=== PATIENT | female | born 1935 | race Caucasian/White ===

== ENCOUNTER → 2017-08-20 | Outpatient (CLI) | payer MEDICARE, MEDICAID ==
[~2017-08-20] MED LIST: ACET-1966 PO; ALBU8.5H IH; AMMO57LO TP; AMOX-559 PO; ASCO500C9 PO; AZIT-1 PO; BISA-236 RC; BISA-71 PO; CALC-18 PO; CALC-852 PO; CALC-864 PO; CHOL200025 PO; CIPDEXPT RIGHT EAR; CLON0.5T66 PO; CRAN250C2 PO; CYAN1TAB68 PO; DICL100G39 TOP; DOCU-202 PO; DOCU100C49 PO; DOXY-179 PO; DOXY50SY2 PO; DULO30CA6 PO; FERR-103 PO; FERR325T24 PO; FLU IM; FLU45SYR17 IM; FLU45SYR25 IM ONLY; FLUC100T35 PO; FLUT1DIS28 IH; FURO-45 PO; FURO-47 PO; FURO20TA19 PO; GUAI1200 PO; HYDR-4308 PO; IPRA3AMP21 IH; LACT1CAP64 PO; LEVO250T55 PO; LIDO5CRE13 TP; LIDO700A29 TD; LISI2.5T60 PO; LOSA25TA47 PO; LUTE20CA11 PO; MAGN400T36 PO; MAGN500C10 PO; MELA1TAB23 PO; METH4TAB66 PO; MONT10TA PO; MORP-20 PO; MUPI15CR10 TP; OMEP-114 PO; OMEP-125 PO; OXYGENHOME INH; PARO-242 PO; PNEU0.5D3 IM; POTA-23 PO; POTA10CA40 PO; SPIR25TA76 PO; VIT-9 PO; VITA1CAP46 PO; [UNRECOGNIZED DRUG - CODE] IV; [UNRECOGNIZED DRUG - CODE] IV; [UNRECOGNIZED DRUG - CODE] IV; [UNRECOGNIZED DRUG - OTHER] IV
== END ==
LOC: AUD 11:00
PROVIDERS: ATTEND Nurse Practitioner Family
DX: Z46.1 Encounter for fitting and adjustment of hearing aid (principal); H91.90 Unspecified hearing loss, unspecified ear
CPT/HCPCS: 92591; V5259

== ENCOUNTER → 2017-09-14 | Outpatient (CLI) | payer MEDICARE, MEDICAID ==
[~2017-09-14] MED LIST changes: +BARIUM SULFATE 176 GM BTL PO ONE; +BARIUM SULFATE 340 GM POWD ONE
--- NOTE | 2017-09-14 16:49 | RADIOLOGY IMAGING REPORT ---
FACILITY: [facility] [place] PATIENT NAME: Alanna Felipe : 1935 MR: [id number] V: [id number] EXAM DATE: ORDERING PHYSICIAN: EDGARD NIELSEN TECHNOLOGIST: Location: [facility] [place] Patient: Alanna Felipe : 1935 Visit/Account:[id number] Date of Sevice: 09/14/2017 Exam type: ESOPHAGRAM History: 81-year-old female with hoarseness and dysphagia Comparison: CT chest 01/08/2017. Findings: Fluoroscopy was used for the purposes of an esophagram. 1.4 minutes of fluoroscopy time was used for total DAP of 1836.12 microGy/m2. The AP view demonstrates elevation right hemidiaphragm which is unchanged prior examination. Patient has a right-sided central venous catheter with the tip in the SVC. Extensive postoperative changes are noted in the cervical spine. The patient was given several sips of thin barium and some crystals. There was aspiration and theref ore a single contrast esophagram was not performed. Motility of the upper esophagus was relatively n ormal. 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 There is also dysmotility and tertiary contractions involving the distal 3rd of the es ophagus. Patient also appears to have a small hiatal hernia. IMPRESSION: 1. Small to moderate amount of aspiration of barium. 2. 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 Patient was unable to pass an 11 mm barium tablet at this location . 3. Small hiatal hernia. 4. Esophageal dysmotility and tertiary contractions involving the distal 3rd of the esophagus. Report Dictated By: Walter Mishra MD at 09/14/2017 4:25 PM Report E-Signed By: Walter Mishra MD at 09/14/2017 4:45 PM WSN:[id number]
== END ==
LOC: RAD 00:54
PROVIDERS: ATTEND Otolaryngology
DX: K44.9 Diaphragmatic hernia without obstruction or gangrene (principal)
CPT/HCPCS: 74220

== ENCOUNTER 2017-09-15 07:59 | Outpatient (RCR) | payer MEDICARE, MEDICAID ==
[2017-06-23 08:28] VITALS: BP 131/72
[2017-06-23] MEDS: ACETAMINOPHEN 325 MG TAB PO PRN (08:40)
[2017-06-23] MEDS: HEPARIN FLSH (PORT) 500 UN/5ML IVP PRN (08:40)
[2017-06-23] MEDS: methylPREDNIS SUCC 125 MG/2ML IVP PRN (08:40)
[2017-06-23] MEDS: LIDOCAINE/SOD BICARB 8.4% SYR ID PRN (08:40)
[2017-06-23 08:41] LABS: PLATELET COUNT, AUTOMATED 140 K/uL (150-450)
[2017-07-14] MEDS: methylPREDNIS SUCC 125 MG/2ML IVP PRN (08:34)
[2017-07-14] MEDS: ACETAMINOPHEN 325 MG TAB PO PRN (08:34)
[2017-07-14 08:49] LABS: PLATELET COUNT, AUTOMATED 168 K/uL (150-450)
[2017-07-14 08:55] VITALS: BP 144/66
[2017-07-14] MEDS: NS(*) 0.9% 100 ML BAG 100 ML IVPB PRN (09:08)
[2017-07-23 12:54] VITALS: BP 156/62
--- NOTE | 2017-07-27 16:49 | ONCOLOGY FOLLOW UP NOTE ---
EVENT DATE: July 23, 2017 DIAGNOSES 1. Iron deficiency anemia. 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 4. Hypertension. 5. History of congestive heart failure. 6. History of peptic ulcer disease. CHIEF COMPLAINT The patient is here for followup of her iron deficiency anemia and hypogammaglobulinemia. HEMATOLOGY HISTORY The patient is a 81-year-old female who is followed by Dr. Kwok. The patient was known to have hypogammaglobulinemia diagnosed at age 31, currently on IVIG every three weeks. The patient was found to have chronic anemia. Her chem panel on June 19, 2015 showed creatinine of 1.1, BUN of 44. Her CBC showed white count 7.3, hemoglobin 8.6, hematocrit 28.2, platelet count 207. Peripheral blood smear showed hypochromia and microcytosis. Soluble transferrin receptor assay was high at 9.4. Serum ferritin was low at 9. HISTORY OF PRESENT ILLNESS Patient is here today for the followup of her iron-deficiency anemia. She is complaining of occasional epistaxis. She has occasional dry cough and occasional shortness of breath. She has generalized joint pains. She has tinging and numbness in her fingers after her neck surgery which is consistent for the 40 years. She bruises easily. Other than that, her general condition is stable. She continue to have IVIG infusions every 3 weeks. CURRENT MEDICATIONS 1. Morphine sulfate 15 mg b.i.d. 2. Omeprazole 20 mg b.i.d. 3. Lasix 40 mg daily. 4. [place] 7.5/325 one tablet b.i.d. p.r.n. 5. Clonazepam 0.5 mg q.h.s. 6. Paxil 10 mg once daily. 7. Spironolactone 12.5 mg daily. 8. Potassium chloride 10 mEq daily. 9. Lisinopril 2.5 mg daily. 10. Vitamin B12/folic acid 1 tablet each daily. 11. Magnesium oxide 500 mg every other day. 12. Bisacodyl 5 mg 2 tablets daily every other day. 13. IVIG every 3 weeks. 14. Cranberry 250 mg daily. 15. Multivitamins. 16. Preservision 2 tablets 2 times daily. 17. Calcium carbonate q.6 hours. 18. Probiotic daily. 19. Heparin flushes for her port. ALLERGIES SULFA, LATEX, FISH. PAST MEDICAL HISTORY 1. Hypogammaglobulinemia. 2. Chronic anemia. 3. Hypertension. 4. History of repeated pneumonia. 5. COPD. 6. History of congestive heart failure. 7. History of hiatal hernia. 8. History of peptic ulcer disease. 9. History of osteomyelitis of the neck. 10. History of shingles. 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 PAST SURGICAL HISTORY 1. Tonsillectomy in 1943. 2. Cholecystectomy in 1963. 3. Splenectomy for ruptured spleen. 4. Total abdominal hysterectomy with salpingo-oophorectomy in 1979. 5. Fracture repair of right ankle. FAMILY HISTORY Negative for cancer or blood diseases. SOCIAL HISTORY The patient is a with 5 children. She was a housewife. Denies any abuse of tobacco, alcohol, or drugs. REVIEW OF SYSTEMS CONSTITUTIONAL: No appetite or weight change. No fever, chills or sweating. No recent infection. HEENT: Ears: No tinnitus or hearing problem. Nose: The patient has occasional epistaxis. Throat: No sore throat or mouth ulcers. Eyes: No diplopia or visual changes. RESPIRATORY: She has dry cough and occasional shortness of breath. CARDIOVASCULAR: No chest pain, orthopnea, or paroxysmal nocturnal dyspnea (PND) . No edema. No palpitations. GASTROINTESTINAL: No nausea or vomiting. No diarrhea or constipation. No change in bowel movements. No heartburn or swallowing difficulties. No abdominal pain. No jaundice. No hematemesis, melena or rectal bleeding. GENITOURINARY: No hematuria or dysuria. MUSCULOSKELETAL: She has pain all over her joints. NEUROLOGICAL: She has tingling and numbness in her fingers after her neck surgery. HEMATOLOGIC/LYMPHATIC: She bruises easily. SKIN: No skin rash or lumps. PSYCHIATRIC: No anxiety or depression. PHYSICAL EXAMINATION GENERAL: Looks stable. Well-developed, well-nourished, and in no acute distress. VITAL SIGNS: Blood pressure 156/62, pulse 73 per minute, respirations 16 per minute, temperature 97.1, pulse ox 94% on 3L oxygen. HEENT: Head: Atraumatic. No sinus tenderness to palpation. Eyes: No icterus or conjunctivitis. Mouth and throat: No oral thrush or mucositis. NECK: Supple. No cervical or supraclavicular lymphadenopathy. LUNGS: Clear to auscultation and percussion bilaterally. HEART: Regular rate and rhythm. No gallops, murmurs, clicks or rubs. ABDOMEN: Soft and lax. No tenderness. No hepatosplenomegaly. No masses. EXTREMITIES: No cyanosis, clubbing or edema. LYMPHATICS: No peripheral lymphadenopathy. NEUROLOGICAL: Conscious, alert and oriented times three. No focal motor or sensory deficits. PSYCHIATRIC: Mood and affect appear normal. SKIN: No skin rash, bruise or purpuric eruption. DIAGNOSTIC DATA CBC shows a white count of 6.6, hemoglobin 11.9, hematocrit 34.3, platelet 140, 000. Serum iron 53. TIBC 303. Iron saturation 17.5%. Ferritin 37 which is down from 62. ASSESSMENT 1. Iron deficiency anemia. Her ferritin initially was 9, and soluble transferrin receptor assay was high at 9.4. Patient was treated with iron supplementation with Injectafer 750 mg weekly for two weeks. Her iron studies normalized. Her current serum ferritin is 62, which is down from 75. Her hemoglobin is normal and good at 13 g/dL. I am planning to continue followup. I will see her next time in four months with CBC, iron studies with ferritin. I will consider Injectafer in the future if she develops iron deficiency again. She is maintained currently on one pill of ferrous sulfate daily and I advised her to continue the same. 2. Hypogammaglobulinemia on IVIG every three weeks. 3. Hypertension, on treatment. 4. History of congestive heart failure. 5. History of peptic ulcer disease. PLAN 1. Continue followup. 2. Increase the iron supplementation from 1 pill a day to 1 pill twice daily. 3. Patient to return in 3 months with CBC and iron studies with ferritin. 4. Patient to contact us for any new concern or complaints. DANIELLA
[2017-08-04 08:33] VITALS: BP 133/73
[2017-08-04] MEDS: ACETAMINOPHEN 325 MG TAB PO PRN (08:38)
[2017-08-04] MEDS: HEPARIN FLSH (PORT) 500 UN/5ML IVP PRN (08:39)
[2017-08-04] MEDS: methylPREDNIS SUCC 125 MG/2ML IVP PRN (08:39)
[2017-08-04] MEDS: NS(*) 0.9% 100 ML BAG 100 ML IVPB PRN (08:40)
[2017-08-04] MEDS: LIDOCAINE/SOD BICARB 8.4% SYR ID PRN (08:40)
[2017-08-04 11:00] VITALS: BP 131/65
[2017-08-25 08:15] VITALS: BP 146/62
[2017-08-25] MEDS: methylPREDNIS SUCC 125 MG/2ML IVP PRN (09:00)
[2017-08-25] MEDS: LIDOCAINE/SOD BICARB 8.4% SYR ID PRN (09:00)
[2017-08-25] MEDS: ACETAMINOPHEN 325 MG TAB PO PRN (09:00)
[2017-08-25] MEDS: NS(*) 0.9% 100 ML BAG 100 ML IVPB PRN (11:05)
[2017-08-25] MEDS: HEPARIN FLSH (PORT) 500 UN/5ML IVP PRN (11:51)
[~2017-09-15] VITALS: Ht 156.2 cm; Wt 71.8 kg
[~2017-09-15 07:59] MED LIST changes: +ALTEPLASE RECOMB 2 MG VIAL IVP PRN; -BARIUM SULFATE 176 GM BTL PO ONE; -BARIUM SULFATE 340 GM POWD ONE; +DEXTROSE 5%(*) 100 ML BAG 100 ML IVPB PRN; +IMMU GLOB(IGG) 10GR/100ML VIAL 40 GR in EMPTY EVACUATED CONT 0 ML IV ONE; +NS(*) 0.9% 500 ML BAG 500 ML IV PRN; +WATER STERILE 10 ML VIAL IVP PRN; +diphenhydrAMINE 25 MG CAP PO PRN
[2017-09-15] MEDS: ACETAMINOPHEN 325 MG TAB PO PRN (08:18)
[2017-09-15] MEDS: LIDOCAINE/SOD BICARB 8.4% SYR ID PRN (08:18)
[2017-09-15] MEDS: methylPREDNIS SUCC 125 MG/2ML IVP PRN (08:19)
[2017-09-15 08:33] VITALS: BP 155/69
[2017-09-15] MEDS: NS(*) 0.9% 100 ML BAG 100 ML IVPB PRN (08:52)
[2017-09-15] MEDS ORDERED: IMMU GLOB(IGG) 10GR/100ML VIAL 40 GR in EMPTY EVACUATED CONT 0 ML IV ONE (09:00)
[2017-09-15] MEDS: HEPARIN FLSH (PORT) 500 UN/5ML IVP PRN (11:40)
[2017-09-15] MEDS ORDERED: MORP-20 PO (17:03)
[2017-09-21] MEDS ORDERED: DULO30CA6 PO (14:52)
== END 2017-09-20 ==
LOC: SPU 07:59
PROVIDERS: ATTEND Internal Medicine Hematology
DX: D64.9 Anemia, unspecified (principal); M86.68 Other chronic osteomyelitis, other site; D80.1 Nonfamilial hypogammaglobulinemia
CPT/HCPCS: 82728; 83540; 83550; 85025; 96365; 96366; 96375; A9270; G0463; J1459; J1642; J2930; J7050; Q0163; 99212

== ENCOUNTER → 2017-10-06 | Outpatient (CLI) | payer MEDICARE, MEDICAID ==
[~2017-10-06] MED LIST changes: -ALTEPLASE RECOMB 2 MG VIAL IVP PRN; -DEXTROSE 5%(*) 100 ML BAG 100 ML IVPB PRN; -IMMU GLOB(IGG) 10GR/100ML VIAL 40 GR in EMPTY EVACUATED CONT 0 ML IV ONE; -NS(*) 0.9% 500 ML BAG 500 ML IV PRN; -WATER STERILE 10 ML VIAL IVP PRN; -diphenhydrAMINE 25 MG CAP PO PRN
== END ==
LOC: SPU 07:32
PROVIDERS: ATTEND Family Medicine
DX: I10 Essential (primary) hypertension (principal); I50.9 Heart failure, unspecified

== ENCOUNTER 2017-10-11 14:42 | Outpatient (RCR) | payer MEDICARE, MEDICAID ==
[~2017-10-11 14:42] MED LIST changes: +ACET-1966 IV; +DIPH-740 IV
--- NOTE | 2017-10-11 18:32 | SWALLOW EVALUATION ---
SPEECH THERAPY ASSESSMENT Physician: Reji Peoples MD Clinician: Haydee Strong MS, [facility]-[employer] Type of Assessment: Dysphagia Evaluation Patient: Alanna Felipe : 1935, 82yrs Evaluation Date: 10-11-17 BACKGROUND The patient is an 82year old female with witnessed aspiration of thin liquids as seen on imaging performed as seen on a recent esophagram. She reports no s/ s of dysphagia. She has a history of esophageal dysphagia including hiatal hernial and esophageal stricture. PREVIOUS LEVEL OF FUNCTION: Primary Medical Diagnosis: Dysphagia Prior Level of Function: Self limits to soft foods d/t no lower dentures. She does where upper dentures. Medical Complications/Past Medical History: See chart for details Pain Scale (0-10): 0 LOC / Participation: alert cooperative Follows instructions: yes Orientation: oriented to person, place, time, situation Functional Communication Deficits impact swallow function/safety, or response to therapy: Yes VOICE Vocal Deficits: No Changes to vocal quality: reports increase in vocal hoarseness over last 6m to 1yr DYSPHAGIA Dysphagia Risk Evaluation Protocol DREP: Water Swallow Test: Fail, Puree Swallow Test: Pass, Solids Swallow Test: Pass Xerostomia: Yes Supplemental Oxygen Use: No Oxygen Saturation: Remains Stable with liquid and food trials. Respiratory Rate: Remains stable throughout food/liquid trials. Oral Structure and Function: Within functional limits for speech and swallow. Largely edentulous bottom ridge. Bottom dentures do not fit well and she does not where them. She does where upper dentures. Pain with Swallow: Denies Respiratory/Swallow Coordination: Typically patterned (ie. exhale/swallow/ exhale) Oral Stage Oral Stage Dysphagia: Mild. Self Feeds: Yes Compensatory Maneuvers Used: Self limits to soft food d/t dentition Pharyngeal Stage Pharyngeal Stage Dysphagia: Yes. Aspiration of think liquid as witnessed on recent esophagram. Pt denies s/s of pharyngeal stage dysphagia Esophageal Stage Esophageal Stage Dysphagia Indicated: Yes. Patient has GERD and is currently taking medications. ST ASSESSMENT SUMMARY DYSPHAGIA Pt failed swallow assessment for thin liquids as aspiration was witnessed on recent esophagram. She reports there was no reflexive coughing or other symptoms at the time aspiration and reports she has no other s/s of dysphagia. RECOMMENDATIONS 1. Modified Barium Swallow Study PLAN OF CARE Short Term Goals Additional goals will be added to POC as indicated by results of MBS 1. The patient will participate in an MBS to further assess swallow structure and function. 2. The patient will receive written and verbal education regarding safe swallow strategies. Assisted Goals: The patient will demonstrate decreased risk for aspiration Patient Goals: reduced s/s of dysphagia Rehabilitation Prognosis: Good. Pt is motivated. Thank you for this referral. Please call [phone] Haydee Strong M.S., [employer]ING M[employer]INE [employer] Physician Signature Date MTDD
[2017-10-17] MEDS ORDERED: FURO-47 PO (19:40)
--- NOTE | 2017-10-26 13:38 | SLP MODIFIED BARIUM SWALLOW ---
Speech Language Pathology Modified Barium Swallow Evaluation Report Date of Evaluation: 10-26-17 Patient Name: Alanna Felipe Patient : 1935 Physician: Dr. Reji Peoples MD Clinician: Haydee Strong M.S., [facility]-[employer]IC ANALYST BACKGROUND The patient is an 82 yr old female referred for an MBS to assess swallow structure and function as indicated by witnessed aspiration during an esophagram in September of 2017. Pt medical hx is significant for COPD and GERD for which she reports she is currently taking medication. She has a history of esophageal dysphagia including hiatal hernia and esophageal stricture. She reports no s/s of dysphagia. MODIFIED BARIUM SWALLOW In conjunction with radiology, lateral view with trials of the following consistencies: thin barium liquid (noncarbonated), barium marked pureed, mechanical soft foods, and a 1cm barium pill. ORAL STAGE Thin Liquids: no evidence of dysphagia . WNL Pureed Foods: no evidence of dysphagia . WNL Mechanical Soft Foods: no evidence of dysphagia . WNL Regular Foods: no evidence of dysphagia . WNL. PHARYNGEAL STAGE Thin Liquid: trace aspiration below the vocal folds on 1/8 trials. Immediate, reflexive cough was successful at clearing material from airway. Pureed Food: no evidence of dysphagia WNL. Mechanical Soft Foods: no evidence of dysphagia WNL. Regular Food Consistency: Pt declined regular food consistency trials due to pt is largely edentulous bottom ridge. Bottom dentures do not fit well and she does not wear them. She does where upper dentures. Penetration/Aspiration Scale*: Thin liquid: Score of 6: Material enters the airway, passes below the vocal folds, and is ejected out of the airway. Trace aspiration occurred on 1/8 trials of thin liquids. [place] thick liquids: Score of 1= Contrast does not enter airway Puree: Score of 1= Contrast does not enter airway Soft solids: Score of 1= Contrast does not enter airway *(Cammiek et al. 1996) BARIUM PILL: 1cm barium pill taken with thin liquids. No oral or pharyngeal, dysphagia witnessed. SUMMARY Aspiration Risk: Low. 1.Dysphagia Severity Rating Scale (Gramigna, 2006; Gumaro et. al., 1990): 0 Normal swallow mechanism RECOMMENDATIONS 1. No further Speech Therapy indicated at this time. Verbal and written education provided to patient and her daughter in law at time of MBS. Pt encouraged to contact ST with any questions and report any changes in swallow to her physician. 2.No modification in consistency of diet is indicated. 3. Follow general safe swallow precautions. Verbal and written education provided Thank you for this referral. Please call [phone] to contact the [employer] ANALYST. Haydee Strong M.S., [facility] ANALYST Physician Signature Date MTDD
[2017-10-26] MEDS ORDERED: LOSA50TA72 PO (17:16)
[2017-10-26] MEDS ORDERED: ALBU8.5H IH (17:24)
[2017-10-26] MEDS ORDERED: ACET500T68 PO (18:53)
== END 2017-10-11 18:00 | disposition home or self-care (01) ==
LOC: ST 14:42
PROVIDERS: ATTEND Otolaryngology
DX: T17.908A Unspecified foreign body in respiratory tract, part unspecified causing other injury, initial encounter (principal)

== ENCOUNTER 2017-10-21 10:15 | Emergency (ER) | payer MEDICARE, MEDICAID ==
--- NOTE | 2017-10-21 10:17 | ER Report ---
History and Physical Time Seen By MD: 10:17 HPI/ROS CHIEF COMPLAINT: Elevated blood pressure HISTORY OF PRESENT ILLNESS: Patient is an 82-year-old female who presents to the emergency department for evaluation of elevated blood pressure home she recorded blood pressure of 200/108. Patient further states over the past few days she's been having increasing shortness of breath but denies actual chest pain or pressure. She also reports a cough but no fevers or chills. The cough is nonproductive. She denies any nausea vomiting or abdominal pain. Patient is taking all her medications as directed. Patient has not had a heart attack in the past. REVIEW OF SYSTEMS: Constitutional: No fever, no chills. Eyes: No discharge. ENT: No sore throat. Cardiovascular: No chest pain, no palpitations. Respiratory: Dry cough, shortness of breath Gastrointestinal: No abdominal pain, no vomiting. Genitourinary: No hematuria. Musculoskeletal: No back pain. Skin: No rashes. Neurological: No headache. Allergies: Coded Allergies: Sulfa (Sulfonamide Antibiotics) (Unverified Allergy, Unknown, nausea, vomiting, 07/25/16) latex (Unverified Allergy, Unknown, 07/25/16) Uncoded Allergies: FISH (Allergy, Unknown, 03/22/14) Home Meds Active Scripts Furosemide (FUROSEMIDE) 40 Mg Tablet, 1 TAB PO DAILY, #180 TAB 4 Refills Prov:KHOA MELENDEZ MD 10/17/17 Morphine Sulfate 15 Mg Er Tab (MORPHINE SULFATE 15 MG ER TAB) 15 Mg Tablet.er, 1 TAB PO BID, #60 TAB Prov:KHOA MELENDEZ MD 10/11/17 Losartan Potassium (COZAAR) 25 Mg Tablet, 25 MG PO QDAY, #90 TAB 4 Refills Prov:KHOA MELENDEZ MD 10/04/17 Duloxetine HCl (Duloxetine HCl) 30 Mg Capsule.dr, 1 CAP PO DAILY, #90 CAP 1 Refill Prov:KHOA MELENDEZ MD 09/21/17 Diclofenac Sodium 1% Gel (VOLTAREN 1% GEL) 100 Gm Gel..gram., 2 GM TOP QID for 90 Days, #3 TUBE 3 Refills Prov:KHOA MELENDEZ MD 08/20/17 Potassium Chloride (POTASSIUM CHLORIDE) 10 Meq Capsule.er, 1 MEQ PO BID, #180 TAB 4 Refills Prov:RADHA GARCÍA MD 05/06/17 Omeprazole (OMEPRAZOLE) 20 Mg Capsule.dr, 1 CAP PO BID, #180 CAP 4 Refills Prov:RADHA GARCÍA MD 05/06/17 Doxycycline Hyclate (DOXYCYCLINE HYCLATE) 100 Mg Tablet, 1 TAB PO QDAY, #90 TAB 2 Refills Prov:RADHA GARCÍA MD 05/06/17 Reported Medications Acetaminophen (TYLENOL) Unknown Strength Tablet, IV Q3WK, TAB 10/08/17 Diphenhydramine Hcl (BENADRYL) Unknown Strength Capsule, IV Q3WK, CAPSULE 10/08/17 Ferrous Sulfate (IRON) 325 Mg Tablet, 1 CAP PO DAILY, #60 TAB 2 Refills 07/16/17 Oxygen (OXYGEN) Inha, 2-4 L INH CONT, L 07/30/15 Calcium Carb & Cit/Vitamin D3 (CITRACAL + D ER TABLET) 1 Each Tablet.er, 1 EACH PO BID 07/30/15 Vitamin B Complex (VITAMIN B COMPLEX) 1 Each Capsule, 1 EACH PO DAILY, CAPSULE 07/30/15 Docusate Sodium (STOOL SOFTENER) 100 Mg Capsule, 2 CAP PO QODAY, CAPSULE 07/30/15 Immune Globulin,Gamma(Igg) 5 Gm Vial (PRIVIGEN 5 GM VIAL) 50 Ml Vial, 42 G IV Q3WK, VIAL no greater than 120 cc/hr 08/22/14 Vit A/Vit C/Vit E/Zinc/Copper (PRESERVISION AREDS TABLET) 1 Each Tablet, 2 TAB PO BID 03/22/14 Lutein (LUTEIN) 20 Mg Capsule, 1 CAP PO QDAY, CAPSULE 03/22/14 Lactobacillus Acidophilus (ACIDOPHILUS) 1 Each Capsule, 1 EACH PO QDAY, CAPSULE 03/22/14 Heparin Sodium,Porcine/Pf (HEPARIN LOCK FLUSH 10 UNITS/ML) 10 Unit/1 Ml Vial, 2 UNIT IV Q3WK, VIAL 03/22/14 Past Medical/Surgical History Past medical history significant for congestive heart failure, history of mitral regurgitation, history of hypertension, history of COPD, history of peptic ulcer disease, anemia, past surgical history for cholecystectomy, splenectomy, hysterectomy and nephrectomy. Also history of fracture repair of right ankle. Hx Smoking: No Smoking Status: Never Smoker Exposure to Second Hand Smoke?: No Hx Substance Use Disorder: No Hx Alcohol Use: No Constitutional Vital Sign - Last 24 Hours 10/21/17 10/21/17 10/21/17 10/21/17 10:15 10:23 10:26 10:31 Temp 98.1 Pulse ??? 73 Resp 18 B/P (MAP) 173/87 (115) 173/87 164/66 (98) Pulse Ox 99 O2 Delivery Room Air 10/21/17 10/21/17 10/21/17 10/21/17 10:40 10:45 11:00 11:07 Pulse 72 77 Resp 12 21 B/P (MAP) 150/68 (95) Pulse Ox 98 98 O2 Flow Rate 3.0 10/21/17 10/21/17 10/21/17 10/21/17 11:15 11:30 11:35 11:50 Pulse 74 76 75 73 Resp 16 19 9 12 Pulse Ox 99 97 99 98 10/21/17 10/21/17 10/21/17 10/21/17 12:05 12:20 12:35 12:50 Pulse 72 72 69 ??? Resp 11 14 8 Pulse Ox 99 99 98 Physical Exam General/Constitutional: Patient is awake, alert, nontoxic and in no acute respiratory distress. Head: Normocephalic and atraumatic. Eyes: Conjunctival clear, Pupils are equal and reactive to light. Extraocular muscles are intact and symmetrical. Sclera are clear and anicteric. Ears:External canals are clear. Tympanic membranes are clear with normal landmarks and light reflex. Nares: No rhinorrhea or bleeding. Turbinates are pink and moist. Oropharyngeal: Mucous membranes are moist. Neck: Supple, no adenopathy. Cardiovascular: Heart is regular rate and rhythm without audible murmurs, rubs or gallops. Pulmonary: Lungs are clear to auscultation bilaterally. There are no wheezes, rales, or rhonchi. Chest rise is symmetrical Abdomen: Soft, nontender, no guarding or peritoneal signs. Extremities: No gross deformities, No peripheral cyanosis. Able to move all 4 extremities. Neuro: Alert and oriented X3, . Skin: No rashes, skin is warm dry and well perfused. Medical Decision Making Data Points Result Diagram: 10/21/17 1057 10/21/17 1057 Laboratory Hematology Test 10/21/17 10:57 3/22/18 11:38 Red Blood Count 3.82 M/uL (4.17-5.56) Mean Corpuscular Volume 94.5 fL (80.0-96.0) Mean Corpuscular Hemoglobin 32.4 pg (26.0-33.0) Mean Corpuscular Hemoglobin Concent 34.3 g/dL (32.0-36.0) Red Cell Distribution Width 14.6 % (11.5-14.5) Mean Platelet Volume 10.7 fL (7.2-11.1) Neutrophils (%) (Auto) 38.0 % (39.4-72.5) Lymphocytes (%) (Auto) 44.4 % (17.6-49.6) Monocytes (%) (Auto) 12.0 % (4.1-12.4) Eosinophils (%) (Auto) 3.7 % (0.4-6.7) Basophils (%) (Auto) 1.9 % (0.3-1.4) Nucleated RBC Relative Count (auto) 0.1 /100WBC Neutrophils # (Auto) 3.3 K/uL (2.0-7.4) Lymphocytes # (Auto) 3.9 K/uL (1.3-3.6) Monocytes # (Auto) 1.1 K/uL (0.3-1.0) Eosinophils # (Auto) 0.3 K/uL (0.0-0.5) Basophils # (Auto) 0.2 K/uL (0.0-0.1) Nucleated RBC Absolute Count (auto) 0.01 K/uL Sodium Level 137 mmol/L (137-145) Potassium Level 4.2 mmol/L (3.5-5.0) Chloride Level 106 mmol/L (98-107) Carbon Dioxide Level 23 mmol/L (22-31) Blood Urea Nitrogen 26 mg/dl (7-18) Creatinine 0.90 mg/dl (0.52-1.04) Glomerular Filtration Rate Calc > 60.0 Random Glucose 97 mg/dl (75-110) Calcium Level 8.5 mg/dl (8.4-10.2) Total Bilirubin 0.4 mg/dl (0.2-1.3) Aspartate Amino Transf (AST/SGOT) 26 U/L (0-35) Alanine Aminotransferase (ALT/SGPT) 25 U/L (0-56) Alkaline Phosphatase 127 U/L (0-126) Troponin I 0.023 ng/ml B-Type Natriuretic Peptide 347 pg/ml (0-100) Total Protein 6.0 gm/dl (6.3-8.2) Albumin 3.1 g/dl (3.5-5.0) Urine Color Yellow Urine Clarity Clear Urine pH 5.0 pH (4.8-9.5) Urine Specific [place] 1.016 Urine Protein Negative mg/dL (NEGATIVE) Urine Glucose (UA) Negative mg/dL (NEGATIVE) Urine Ketones Negative mg/dL (NEGATIVE) Urine Blood Negative (NEGATIVE) Urine Nitrite Negative (NEGATIVE) Urine Bilirubin Negative (NEGATIVE) Urine Urobilinogen Negative mg/dL (0.2-1.9) Urine Leukocyte Esterase Negative (NEGATIVE) Urine RBC 1 /HPF (0-2/HPF) Urine WBC 1 /HPF (0-5/HPF) Urine Squamous Epithelial Cells None /LPF (NONE-FEW) Urine Transitional Epithelial Cells Few /LPF (NONE-FEW) Urine Bacteria Negative /HPF (NONE-FEW) Urine Mucus None /HPF (NONE-FEW) Chemistry Test 10/21/17 10:57 10/21/17 11:38 White Blood Count 8.7 k/uL (4.5-11.0) Red Blood Count 3.82 M/uL (4.17-5.56) Hemoglobin 12.4 g/dL (12.0-16.0) Hematocrit 36.1 % (34.0-47.0) Mean Corpuscular Volume 94.5 fL (80.0-96.0) Mean Corpuscular Hemoglobin 32.4 pg (26.0-33.0) Mean Corpuscular Hemoglobin Concent 34.3 g/dL (32.0-36.0) Red Cell Distribution Width 14.6 % (11.5-14.5) Platelet Count 169 K/uL (150-450) Mean Platelet Volume 10.7 fL (7.2-11.1) Neutrophils (%) (Auto) 38.0 % (39.4-72.5) Lymphocytes (%) (Auto) 44.4 % (17.6-49.6) Monocytes (%) (Auto) 12.0 % (4.1-12.4) Eosinophils (%) (Auto) 3.7 % (0.4-6.7) Basophils (%) (Auto) 1.9 % (0.3-1.4) Nucleated RBC Relative Count (auto) 0.1 /100WBC Neutrophils # (Auto) 3.3 K/uL (2.0-7.4) Lymphocytes # (Auto) 3.9 K/uL (1.3-3.6) Monocytes # (Auto) 1.1 K/uL (0.3-1.0) Eosinophils # (Auto) 0.3 K/uL (0.0-0.5) Basophils # (Auto) 0.2 K/uL (0.0-0.1) Nucleated RBC Absolute Count (auto) 0.01 K/uL Glomerular Filtration Rate Calc > 60.0 Calcium Level 8.5 mg/dl (8.4-10.2) Total Bilirubin 0.4 mg/dl (0.2-1.3) Aspartate Amino Transf (AST/SGOT) 26 U/L (0-35) Alanine Aminotransferase (ALT/SGPT) 25 U/L (0-56) Alkaline Phosphatase 127 U/L (0-126) Troponin I 0.023 ng/ml B-Type Natriuretic Peptide 347 pg/ml (0-100) Total Protein 6.0 gm/dl (6.3-8.2) Albumin 3.1 g/dl (3.5-5.0) Urine Color Yellow Urine Clarity Clear Urine pH 5.0 pH (4.8-9.5) Urine Specific [place] 1.016 Urine Protein Negative mg/dL (NEGATIVE) Urine Glucose (UA) Negative mg/dL (NEGATIVE) Urine Ketones Negative mg/dL (NEGATIVE) Urine Blood Negative (NEGATIVE) Urine Nitrite Negative (NEGATIVE) Urine Bilirubin Negative (NEGATIVE) Urine Urobilinogen Negative mg/dL (0.2-1.9) Urine Leukocyte Esterase Negative (NEGATIVE) Urine RBC 1 /HPF (0-2/HPF) Urine WBC 1 /HPF (0-5/HPF) Urine Squamous Epithelial Cells None /LPF (NONE-FEW) Urine Transitional Epithelial Cells Few /LPF (NONE-FEW) Urine Bacteria Negative /HPF (NONE-FEW) Urine Mucus None /HPF (NONE-FEW) Urinalysis Test 10/21/17 11:38 Urine Color Yellow Urine Clarity Clear Urine pH 5.0 pH (4.8-9.5) Urine Specific [place] 1.016 Urine Protein Negative mg/dL (NEGATIVE) Urine Glucose (UA) Negative mg/dL (NEGATIVE) Urine Ketones Negative mg/dL (NEGATIVE) Urine Blood Negative (NEGATIVE) Urine Nitrite Negative (NEGATIVE) Urine Bilirubin Negative (NEGATIVE) Urine Urobilinogen Negative mg/dL (0.2-1.9) Urine Leukocyte Esterase Negative (NEGATIVE) Urine RBC 1 /HPF (0-2/HPF) Urine WBC 1 /HPF (0-5/HPF) Urine Squamous Epithelial Cells None /LPF (NONE-FEW) Urine Transitional Epithelial Cells Few /LPF (NONE-FEW) Urine Bacteria Negative /HPF (NONE-FEW) Urine Mucus None /HPF (NONE-FEW) EKG/Imaging EKG Interpretation EKG shows normal sinus rhythm with possible left atrial enlargement otherwise EKG appears normal. Monitor Interpretation: Normal Sinus Rhythm ED Course/Re-evaluation Clinical Indication for ER IV: IV Access ED Course 10/21/2017 11:17:29 am Plan at this time will be to obtain an EKG chest x-ray we will do a cardiac workup including a troponin and a BNP. Patient not having any body aches or headaches. No other symptoms to suggest influenza. Current blood pressure is 150 /68 without treatment Decision to Disposition Date: Oct 21, 2017 Decision to Disposition Time: 12:29 Depart Departure Latest Vital Signs Vital Signs Date Time Temp Pulse Resp B/P (MAP) Pulse Ox O2 Delivery O2 Flow Rate FiO2 10/21/17 12:50 ??? 10/21/17 12:35 8 98 10/21/17 11:07 3.0 10/21/17 10:40 150/68 (95) 10/21/17 10:26 98.1 Room Air Impression: Primary Impression: Hypertension Condition: Improved Disposition: HOME OR SELF-CARE Referrals: KHOA MELENDEZ MD (PCP) In 1 to 2 weeks for recheck of blood pressure. Patient Instructions: Chronic Hypertension (ED) Additional Instructions: Continue all your outpatient medications as prescribed Problem Qualifiers Primary Impression: Hypertension Hypertension type: essential hypertension Qualified Codes: I10 - Essential ( primary) hypertension RENÉ PIERRE MD Oct 21, 2017 10:17
[2017-10-21 10:40] VITALS: BP 150/68
[2017-10-21 11:23] LABS: PLATELET COUNT, AUTOMATED 169 K/uL (150-450)
--- NOTE | 2017-10-21 11:55 | EKG ---
[facility] PATIENT NAME: SARAHY MORTON : [id number] MR: [id number] V: [id number] EXAM DATE: ORDERING PHYSICIAN: RENÉ PIERRE TECHNOLOGIST: Fracisco Jane Reason : Blood Pressure : / mmHG Vent. Rate : 072 BPM Atrial Rate : 072 BPM P-R Int : 124 ms QRS Dur : 088 ms QT Int : 426 ms P-R-T Axes : 040 002 018 degrees QTc Int : 466 ms Normal sinus rhythm Possible Left atrial enlargement Borderline ECG When compared with ECG of 06-NOV-2016 10:12, No significant change was found Confirmed by ZOIE LYLES ([id number]) on 10/21/2017 4:42:00 PM Referred By: Confirmed By:ZOIE LYLES
--- NOTE | 2017-10-21 12:10 | RADIOLOGY IMAGING REPORT ---
FACILITY: [facility] [place] PATIENT NAME: Alanna Felipe : 1935 MR: [id number] V: [id number] EXAM DATE: ORDERING PHYSICIAN: RENÉ PIERRE TECHNOLOGIST: Location: [facility] [place] Patient: Alanna Felipe : 1935 Visit/Account:[id number] Date of Sevice: 10/21/2017 CHEST PA AND LAT History: Chest Pain FINDINGS: Comparison studies: Comparison chest CT 01/08/2017 and chest x-ray 11/06/2016 Tubes and Lines: Implanted power port unchanged Lungs and pleura: There is chronically elevated right hemidiaphragm unchanged from previous study. Lungs are well-aerated without evidence of focal consolidation. No pleural effusions are seen. Mediastinum: normal. Cardiac silhouette: Cardiac silhouette appears enlarged but this is unchanged and is due in part to d isplacement from the elevated right hemidiaphragm. Osseous structures: Cervical spinal fusion hardware unchanged from prior exam Additional findings: Numerous surgical clips left upper quadrant of the abdomen unchanged IMPRESSION: No acute cardiopulmonary pathology identified. Report Dictated By: Rony Tillman MD at 10/21/2017 12:02 PM Report E-Signed By: Rony Tillman MD at 10/21/2017 12:05 PM WSN:[id number]
[2017-10-21] MEDS ORDERED: HEPARIN FLSH (PORT) 500 UN/5ML IVP ONE (12:35)
== END 2017-10-21 12:55 | disposition home or self-care (01) ==
LOC: ER 10:20
DX: I10 Essential (primary) hypertension (principal)
CPT/HCPCS: 71046; 81001; 83880; 84484; 85025; 93005; 99284; A4353; J1642; 82040; 82247; 82310; 82374; 82435; 82565; 82947; 84075; 84132; 84155; 84295; 84450; 84460; 84520

== ENCOUNTER → 2017-10-22 | Outpatient (CLI) | payer MEDICARE, MEDICAID ==
[~2017-10-22] MED LIST changes: +ACET500T68 PO; +BARIUM SULFATE 148 GM POWDER ONE; +BARIUM SULFATE 240 ML ORAL SUS (NECTAR) ONE; +LOSA50TA72 PO
--- NOTE | 2017-10-26 12:09 | RADIOLOGY IMAGING REPORT ---
FACILITY: [facility] PATIENT NAME: Alanna Felipe : 1935 MR: [id number] V: [id number] EXAM DATE: ORDERING PHYSICIAN: EDGARD NIELSEN TECHNOLOGIST: Location: [facility] Patient: Alanna Felipe : 1935 Visit/Account:[id number] Date of Sevice: 10/26/2017 ESOPH VIDEO SWALLOWING HISTORY: dysphagia Modified barium swallow performed with the speech pathologist and radiologist both in attendance. Pa tient was administered thin, puree solid, soft solid and mixed barium preparations. Patient was also administered a barium pill. Study demonstrating normal oropharyngeal swallowing mechanism and motility. On the initial swallow t he patient was noted to have penetration and aspiration. After this initial episode, no additional p enetration or aspiration events were noted. Barium pill passed easily. IMPRESSION: 1. Modified barium swallow as described. Please refer to the speech pathologist report for complete elucidation. Fluoroscopic time of 1.5 minutes. DAP [id number] Report Dictated By: Broderick Aguero MD at 10/26/2017 12:02 PM Report E-Signed By: Broderick Aguero MD at 10/26/2017 12:05 PM WSN:[id number]
== END ==
LOC: RAD 14:56
PROVIDERS: ATTEND Otolaryngology
DX: R13.14 Dysphagia, pharyngoesophageal phase (principal); K21.9 Gastro-esophageal reflux disease without esophagitis

== ENCOUNTER 2017-11-03 00:30 | Day surgery (SDC) | payer MEDICARE, MEDICAID ==
[~2017-11-03] VITALS: Ht 157.5 cm; Wt 67.6 kg
[2017-11-03] VITALS (9 sets, daily range): BP systolic 139–186; BP diastolic 58–90
[~2017-11-03 00:30] MED LIST changes: -BARIUM SULFATE 148 GM POWDER ONE; -BARIUM SULFATE 240 ML ORAL SUS (NECTAR) ONE
[2017-11-03] MEDS ORDERED: NORMOSOL R SOLN(*) 1000 ML BAG 1,000 ML IV PRN (08:15)
[2017-11-03] MEDS ORDERED: LIDOCAINE/SOD BICARB 8.4% SYR ID ONE (08:15)
[2017-11-03] MEDS ORDERED: LIDOCAINE MPF 1% 5 ML VIAL ONE (08:51)
[2017-11-03] MEDS ORDERED: PROPOFOL EMUL(*) 10MG/ML 20 ML 20 ML ONE (08:51)
--- NOTE | 2017-11-03 09:50 | Short(Outpt) Discharge Summary ---
Discharge Summary Reason for Hosp/Final Diag: (1) Dysphagia Status: Chronic Hospital Course & Plan: EGD with esophageal dilation completed without problems. (2) GERD (gastroesophageal reflux disease) Status: Chronic (3) History of peptic ulcer disease Status: Chronic Departure Discharge to: Home, Self Care Discharge Instructions Home Meds Active Scripts Albuterol Sulfate 90 Mcg/Act (PROAIR HFA 90 MCG/ACT) 8.5 Gm Hfa.aer.ad, 1-2 PUFF IH 3-4XD for 30 Days, #1 INHALER Prov:KHOA MELENDEZ MD 10/26/17 Losartan Potassium (LOSARTAN POTASSIUM) 50 Mg Tablet, 50 MG PO QDAY for 90 Days , #90 TAB Prov:KHOA MELENDEZ MD 10/26/17 Furosemide (FUROSEMIDE) 40 Mg Tablet, 1 TAB PO DAILY, #180 TAB 4 Refills Prov:KHOA MELENDEZ MD 10/17/17 Morphine Sulfate 15 Mg Er Tab (MORPHINE SULFATE 15 MG ER TAB) 15 Mg Tablet.er, 1 TAB PO BID, #60 TAB Prov:KHOA MELENDEZ MD 10/11/17 Duloxetine HCl (Duloxetine HCl) 30 Mg Capsule.dr, 1 CAP PO DAILY, #90 CAP 1 Refill Prov:KHOA MELENDEZ MD 09/21/17 Diclofenac Sodium 1% Gel (VOLTAREN 1% GEL) 100 Gm Gel..gram., 2 GM TOP QID for 90 Days, #3 TUBE 3 Refills Prov:KHOA MELENDEZ MD 08/20/17 Potassium Chloride (POTASSIUM CHLORIDE) 10 Meq Capsule.er, 1 MEQ PO BID, #180 TAB 4 Refills Prov:RADHA GARCÍA MD 05/06/17 Omeprazole (OMEPRAZOLE) 20 Mg Capsule.dr, 1 CAP PO BID, #180 CAP 4 Refills Prov:RADHA GARCÍA MD 05/06/17 Doxycycline Hyclate (DOXYCYCLINE HYCLATE) 100 Mg Tablet, 1 TAB PO QDAY, #90 TAB 2 Refills Prov:RADHA GARCÍA MD 05/06/17 Reported Medications Acetaminophen (TYLENOL EXTRA STRENGTH) 500 Mg Tablet, 2 TAB PO TID, CAP 10/26/17 Acetaminophen (TYLENOL) Unknown Strength Tablet, IV Q3WK, TAB 10/08/17 Diphenhydramine Hcl (BENADRYL) Unknown Strength Capsule, IV Q3WK, CAPSULE 10/08/17 Ferrous Sulfate (IRON) 325 Mg Tablet, 1 CAP PO DAILY, #60 TAB 2 Refills 07/16/17 Oxygen (OXYGEN) Inha, 2-4 L INH CONT, L 07/30/15 Calcium Carb & Cit/Vitamin D3 (CITRACAL + D ER TABLET) 1 Each Tablet.er, 1 EACH PO BID 07/30/15 Vitamin B Complex (VITAMIN B COMPLEX) 1 Each Capsule, 1 EACH PO DAILY, CAPSULE 07/30/15 Docusate Sodium (STOOL SOFTENER) 100 Mg Capsule, 2 CAP PO QODAY, CAPSULE 07/30/15 Immune Globulin,Gamma(Igg) 5 Gm Vial (PRIVIGEN 5 GM VIAL) 50 Ml Vial, 42 G IV Q3WK, VIAL no greater than 120 cc/hr 08/22/14 Vit A/Vit C/Vit E/Zinc/Copper (PRESERVISION AREDS TABLET) 1 Each Tablet, 2 TAB PO BID 03/22/14 Lutein (LUTEIN) 20 Mg Capsule, 1 CAP PO QDAY, CAPSULE 03/22/14 Lactobacillus Acidophilus (ACIDOPHILUS) 1 Each Capsule, 1 EACH PO QDAY, CAPSULE 03/22/14 Heparin Sodium,Porcine/Pf (HEPARIN LOCK FLUSH 10 UNITS/ML) 10 Unit/1 Ml Vial, 2 UNIT IV Q3WK, VIAL 03/22/14 Follow up Referrals: General Surgery - 11/30/17 @ Surgery, General with Zoie Roa Md You have a follow up appointment scheduled with Dr. Roa on 11/30/17, at 9:30am. Diet: Regular Activity: As Tolerated Special Instructions: Your upper endoscopy was completed without any problems and I dilated your esophagus. I didn't find any evidence of cancer or precancerous lesions. You had mild inflammation in your lower stomach. I will see you back in my office on 11/30/17 and we'll see how your symptoms are at that time. Problem Qualifiers (1) Dysphagia: Dysphagia type: esophageal phase Qualified Codes: R13.10 - Dysphagia, unspecified ZOIE ROA MD Nov 03, 2017 09:50
[2017-11-08] MEDS ORDERED: ALB18R INH (09:50)
[2017-11-08] MEDS ORDERED: MORP-20 PO (13:31)
== END 2017-11-03 11:25 | disposition home or self-care (01) ==
LOC: OR 00:30
PROVIDERS: ATTEND Surgery
DX: R13.10 Dysphagia, unspecified (principal); K21.9 Gastro-esophageal reflux disease without esophagitis; I11.0 Hypertensive heart disease with heart failure; I34.0 Nonrheumatic mitral (valve) insufficiency; Z99.81 Dependence on supplemental oxygen; I50.9 Heart failure, unspecified; J44.9 Chronic obstructive pulmonary disease, unspecified; D64.9 Anemia, unspecified; K27.9 Peptic ulcer, site unspecified, unspecified as acute or chronic, without hemorrhage or perforation; Z90.49 Acquired absence of other specified parts of digestive tract; Z90.710 Acquired absence of both cervix and uterus; Z98.1 Arthrodesis status
CPT/HCPCS: 43248; C1769; J2001; J2704

== ENCOUNTER → 2017-12-02 | Outpatient (CLI) | payer MEDICARE, MEDICAID ==
[~2017-12-02] MED LIST changes: +ALB18R INH; +FLUT16SP19 NS
== END ==
LOC: RESP 02:18
PROVIDERS: ATTEND Family Medicine
DX: J98.4 Other disorders of lung (principal)
CPT/HCPCS: 94060; 94726; 94729

== ENCOUNTER → 2017-12-08 | Outpatient (CLI) | payer MEDICARE, MEDICAID | LOC: SPU 08:44 | PROVIDERS: ATTEND Internal Medicine Cardiovascular Disease | DX: I34.0 Nonrheumatic mitral (valve) insufficiency (principal); I10 Essential (primary) hypertension | CPT/HCPCS: 36591; 82040; 82247; 82310; 82374; 82435; 82565; 82947; 83880; 84075; 84132; 84155; 84295; 84450; 84460; 84520 ==

== ENCOUNTER → 2017-12-23 | Outpatient (CLI) | payer MEDICARE, MEDICAID ==
[~2017-12-23] MED LIST changes: +BENZ100C4 PO
--- NOTE | 2017-12-23 17:46 | RADIOLOGY IMAGING REPORT ---
FACILITY: [facility] - [place] PATIENT NAME: Alanna Felipe : 1935 MR: [id number] V: [id number] EXAM DATE: ORDERING PHYSICIAN: KHOA MELENDEZ TECHNOLOGIST: Location: [facility] [place] Patient: Alanna Felipe : 1935 Visit/Account:[id number] Date of Sevice: 12/23/2017 Chest 2 views: HISTORY: Cough, immunodef. COMPARISON: 10/21/2017 FINDINGS: Frontal and lateral chest: Heart is enlarged, similar to previous. There is elevation the r ight hemidiaphragm which is unchanged. There is no infiltrate or pleural effusion. No pneumothorax. P ulmonary vasculature is normal. Chest port remains in place, position unchanged. Surgical clips are present in the upper abdomen. Postsurgical changes present in the cervical spine. IMPRESSION: Stable chronic changes. There is no evidence of acute cardiopulmonary abnormality. Report Dictated By: Tiny Kent MD at 12/23/2017 5:39 PM Report E-Signed By: Tiny Kent MD at 12/23/2017 5:42 PM WSN:[id number]
== END ==
LOC: RAD 16:38
PROVIDERS: ATTEND Family Medicine
DX: I51.7 Cardiomegaly (principal)
CPT/HCPCS: 71046

== ENCOUNTER 2017-12-29 08:08 | Outpatient (RCR) | payer MEDICARE, MEDICAID ==
[2017-10-06] MEDS: HEPARIN FLSH (PORT) 500 UN/5ML IVP PRN (08:11)
[2017-10-06] MEDS: LIDOCAINE/SOD BICARB 8.4% SYR ID PRN (08:11)
[2017-10-06] MEDS: NS(*) 0.9% 100 ML BAG 100 ML IVPB PRN (08:12)
[2017-10-06 08:35] LABS: PLATELET COUNT, AUTOMATED 169 K/uL (150-450)
[2017-10-06] MEDS: methylPREDNIS SUCC 125 MG/2ML IVP PRN (08:47)
[2017-10-06] MEDS: ACETAMINOPHEN 325 MG TAB PO PRN (08:47)
[2017-10-27] MEDS: ACETAMINOPHEN 325 MG TAB PO PRN (08:19)
[2017-10-27] MEDS: LIDOCAINE/SOD BICARB 8.4% SYR ID PRN (08:23)
[2017-10-27 08:37] VITALS: BP 143/69
[2017-10-27] MEDS: methylPREDNIS SUCC 125 MG/2ML IVP PRN (08:45)
[2017-10-27 08:47] LABS: PLATELET COUNT, AUTOMATED 160 K/uL (150-450)
[2017-10-27] MEDS: HEPARIN FLSH (PORT) 500 UN/5ML IVP PRN (11:53)
[2017-10-29 12:27] VITALS: BP 182/79
--- NOTE | 2017-10-30 15:23 | ONCOLOGY FOLLOW UP NOTE ---
EVENT DATE: October 29, 2017 DIAGNOSES 1. Iron deficiency anemia. 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 4. Hypertension. 5. History of congestive heart failure. 6. History of peptic ulcer disease. CHIEF COMPLAINT The patient is here today for followup of her iron deficiency anemia and hypogammaglobulinemia. HEMATOLOGY HISTORY The patient is a 82-year-old female who is followed by Dr. Kwok. The patient was known to have hypogammaglobulinemia diagnosed at age 31, currently on IVIG every three weeks. The patient was found to have chronic anemia. Her chem panel on June 19, 2015 showed creatinine of 1.1, BUN of 44. Her CBC showed white count 7.3, hemoglobin 8.6, hematocrit 28.2, platelet count 207. Peripheral blood smear showed hypochromia and microcytosis. Soluble transferrin receptor assay was high at 9.4. Serum ferritin was low at 9. HISTORY OF PRESENT ILLNESS Patient is here today for followup of her hypogammaglobulinemia and iron- deficiency anemia. She is complaining of cough with occasional phlegm. She is short of winded. She is on 3L of oxygen currently. She has back pain, pain in her ankles and hands. She has numbness in her fingers. CURRENT MEDICATIONS 1. Morphine sulfate 15 mg b.i.d. 2. Omeprazole 20 mg b.i.d. 3. Lasix 40 mg daily. 4. [place] 7.5/325 one tablet b.i.d. p.r.n. 5. Clonazepam 0.5 mg q.h.s. 6. Paxil 10 mg once daily. 7. Spironolactone 12.5 mg daily. 8. Potassium chloride 10 mEq daily. 9. Lisinopril 2.5 mg daily. 10. Vitamin B12/folic acid 1 tablet each daily. 11. Magnesium oxide 500 mg every other day. 12. Bisacodyl 5 mg 2 tablets daily every other day. 13. IVIG every 3 weeks. 14. Cranberry 250 mg daily. 15. Multivitamins. 16. Preservision 2 tablets 2 times daily. 17. Calcium carbonate q.6 hours. 18. Probiotic daily. 19. Heparin flushes for her port. ALLERGIES SULFA, LATEX, FISH. PAST MEDICAL HISTORY 1. Hypogammaglobulinemia. 2. Chronic anemia. 3. Hypertension. 4. History of repeated pneumonia. 5. COPD. 6. History of congestive heart failure. 7. History of hiatal hernia. 8. History of peptic ulcer disease. 9. History of osteomyelitis of the neck. 10. History of shingles. 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 PAST SURGICAL HISTORY 1. Tonsillectomy in 1943. 2. Cholecystectomy in 1963. 3. Splenectomy for ruptured spleen. 4. Total abdominal hysterectomy with salpingo-oophorectomy in 1979. 5. Fracture repair of right ankle. FAMILY HISTORY Negative for cancer or blood diseases. SOCIAL HISTORY The patient is a with 5 children. She was a housewife. Denies any abuse of tobacco, alcohol, or drugs. REVIEW OF SYSTEMS CONSTITUTIONAL: No appetite or weight change. No fever, chills or sweating. No recent infection. HEENT: Ears: No tinnitus or hearing problem. Nose: The patient has occasional epistaxis. Throat: No sore throat or mouth ulcers. Eyes: No diplopia or visual changes. RESPIRATORY: Patient has cough with occasional phlegm. She is short winded. CARDIOVASCULAR: No chest pain, orthopnea, or paroxysmal nocturnal dyspnea (PND) . No edema. No palpitations. GASTROINTESTINAL: No nausea or vomiting. No diarrhea or constipation. No change in bowel movements. No heartburn or swallowing difficulties. No abdominal pain. No jaundice. No hematemesis, melena or rectal bleeding. GENITOURINARY: No hematuria or dysuria. MUSCULOSKELETAL: She has pain in the back, ankles and hands. NEUROLOGICAL: She has numbness in her fingers. HEMATOLOGIC/LYMPHATIC: She bruises easily. SKIN: No skin rash or lumps. PSYCHIATRIC: No anxiety or depression. PHYSICAL EXAMINATION GENERAL: Looks stable. Well-developed, well-nourished, and in no acute distress. VITAL SIGNS: Blood pressure 182/79, pulse 82 per minute, respirations 16 per minute, temperature 97.3, pulse ox 92% on 3L oxygen. HEENT: Head: Atraumatic. No sinus tenderness to palpation. Eyes: No icterus or conjunctivitis. Mouth and throat: No oral thrush or mucositis. NECK: Supple. No cervical or supraclavicular lymphadenopathy. LUNGS: Clear to auscultation and percussion bilaterally. HEART: Regular rate and rhythm. No gallops, murmurs, clicks or rubs. ABDOMEN: Soft and lax. No tenderness. No hepatosplenomegaly. No masses. EXTREMITIES: No cyanosis, clubbing or edema. LYMPHATICS: No peripheral lymphadenopathy. NEUROLOGICAL: Conscious, alert and oriented times three. No focal motor or sensory deficits. PSYCHIATRIC: Mood and affect appear normal. SKIN: No skin rash, bruise or purpuric eruption. DIAGNOSTIC DATA CBC shows a white count of 5.5, hemoglobin 12.6, hematocrit 36.6, platelet 160, 000. Serum iron 61. TIBC 309. Iron saturation 19.7%. Ferritin 50 which is up from 37. ASSESSMENT 1. Iron deficiency anemia. Her ferritin initially was 9, and soluble transferrin receptor assay was high at 9.4. Patient was treated with iron supplementation with Injectafer 750 mg weekly for two weeks with normalization of her iron studies. Her current serum ferritin is 50, which is up from 37 after increasing her iron supplement from one pill to two pills a day. Her hemoglobin is stable at 12.6 g/dL. I am planning to continue followup. I will see her again in three months with CBC, iron studies with ferritin. 2. Hypogammaglobulinemia on IVIG every three weeks. 3. Hypertension, on treatment. 4. History of congestive heart failure. 5. History of peptic ulcer disease. PLAN 1. Continue followup. 2. Patient to return in 3 months with CBC and iron studies with ferritin. 3. Continue iron supplementation two pills a day. 4. Patient to contact us for any new concerns or complaints. DANIELLA
[2017-11-17 08:26] VITALS: BP 141/62
[2017-11-17] MEDS: LIDOCAINE/SOD BICARB 8.4% SYR ID PRN (08:34)
[2017-11-17] MEDS: methylPREDNIS SUCC 125 MG/2ML IVP PRN (08:34)
[2017-11-17] MEDS: ACETAMINOPHEN 325 MG TAB PO PRN (08:34)
[2017-11-17] MEDS: HEPARIN FLSH (PORT) 500 UN/5ML IVP PRN (11:33)
[2017-11-17 11:34] VITALS: BP 154/77
[2017-12-08] MEDS: methylPREDNIS SUCC 125 MG/2ML IVP PRN (08:54)
[2017-12-08] MEDS: ACETAMINOPHEN 325 MG TAB PO PRN (08:54)
[2017-12-08] MEDS: LIDOCAINE/SOD BICARB 8.4% SYR ID PRN (08:56)
[2017-12-08] MEDS: HEPARIN FLSH (PORT) 500 UN/5ML IVP PRN (08:56)
[2017-12-08 14:26] VITALS: BP 146/68
[~2017-12-29 08:08] MED LIST changes: +ALTEPLASE RECOMB 2 MG VIAL IVP PRN; +DEXTROSE 5%(*) 100 ML BAG 100 ML IVPB PRN; +IMMU GLOB(IGG) 10GR/100ML VIAL 40 GR in EMPTY EVACUATED CONT 0 ML IV ONE; +NS(*) 0.9% 500 ML BAG 500 ML IV PRN; +WATER STERILE 10 ML VIAL IVP PRN
[2017-12-29 08:22] VITALS: BP 145/64
[2017-12-29] MEDS: NS(*) 0.9% 100 ML BAG 100 ML IVPB PRN (08:42)
[2017-12-29] MEDS: LIDOCAINE/SOD BICARB 8.4% SYR ID PRN (08:42)
[2017-12-29] MEDS: HEPARIN FLSH (PORT) 500 UN/5ML IVP PRN (08:42)
[2017-12-29] MEDS: methylPREDNIS SUCC 125 MG/2ML IVP PRN (08:43)
[2017-12-29] MEDS: ACETAMINOPHEN 325 MG TAB PO PRN (08:43)
[2017-12-29] MEDS ORDERED: IMMU GLOB(IGG) 10GR/100ML VIAL 40 GR in EMPTY EVACUATED CONT 0 ML IV ONE (08:45)
[2017-12-29 14:41] VITALS: BP 145/64
== END 2018-01-03 ==
LOC: SPU 08:08
PROVIDERS: ATTEND Internal Medicine Hematology
DX: D50.9 Iron deficiency anemia, unspecified (principal); M86.68 Other chronic osteomyelitis, other site; D80.1 Nonfamilial hypogammaglobulinemia; I10 Essential (primary) hypertension; R05 Cough; R06.02 Shortness of breath
CPT/HCPCS: 82728; 83540; 83550; 83880; 85025; 96365; 96366; 96367; 96375; A9270; G0463; J1459; J1642; J2930; J7040; J7050; Q0163; 36591; 82040; 82247; 82310; 82374; 82435; 82565; 82947; 84075; 84132; 84155; 84295; 84450; 84460; 84520; 99212

== ENCOUNTER → 2018-03-28 | Outpatient (CLI) | payer MEDICARE, MEDICAID ==
[~2018-03-28] MED LIST changes: -ALTEPLASE RECOMB 2 MG VIAL IVP PRN; -DEXTROSE 5%(*) 100 ML BAG 100 ML IVPB PRN; -IMMU GLOB(IGG) 10GR/100ML VIAL 40 GR in EMPTY EVACUATED CONT 0 ML IV ONE; +IPRA3AMP10 IH; -IPRA3AMP21 IH; -NS(*) 0.9% 500 ML BAG 500 ML IV PRN; -WATER STERILE 10 ML VIAL IVP PRN
[2018-03-28 16:53] LABS: PLATELET COUNT, AUTOMATED 220 K/uL (150-450)
== END ==
LOC: LAB 16:31
PROVIDERS: ATTEND Family Medicine
DX: I10 Essential (primary) hypertension (principal); R53.83 Other fatigue
CPT/HCPCS: 36415; 82040; 82247; 82310; 82374; 82435; 82565; 82947; 84075; 84132; 84155; 84295; 84443; 84450; 84460; 84520; 85025

== ENCOUNTER 2018-04-13 08:07 | Outpatient (RCR) | payer MEDICARE, MEDICAID ==
[2018-01-19 08:50] LABS: PLATELET COUNT, AUTOMATED 157 K/uL (150-450)
[2018-01-19 08:51] VITALS: BP 145/59
[2018-01-19] MEDS: ACETAMINOPHEN 325 MG TAB PO PRN (09:04)
[2018-01-19] MEDS: methylPREDNIS SUCC 125 MG/2ML IVP PRN (09:04)
[2018-01-19] MEDS: NS(*) 0.9% 100 ML BAG 100 ML IVPB PRN (09:15)
[2018-02-09] MEDS: LIDOCAINE/SOD BICARB 8.4% SYR ID PRN (08:27)
[2018-02-09] MEDS: ACETAMINOPHEN 325 MG TAB PO PRN (08:27)
[2018-02-09] MEDS: NS(*) 0.9% 100 ML BAG 100 ML IVPB PRN ×2 (08:27→09:41)
[2018-02-09] MEDS: methylPREDNIS SUCC 125 MG/2ML IVP PRN (08:28)
[2018-02-09 09:02] VITALS: BP 151/67
[2018-02-09] MEDS: HEPARIN FLSH (PORT) 500 UN/5ML IVP PRN (11:56)
[2018-02-09 12:03] VITALS: BP 146/70
[2018-02-11 16:28] VITALS: BP 143/65
--- NOTE | 2018-02-11 19:11 | ONCOLOGY FOLLOW UP NOTE ---
EVENT DATE: February 11, 2018 DIAGNOSES 1. Iron deficiency anemia. 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 4. Hypertension. 5. History of congestive heart failure. 6. History of peptic ulcer disease. CHIEF COMPLAINT The patient is here today for followup of her iron deficiency anemia and hypogammaglobulinemia. HEMATOLOGY HISTORY The patient is a 82-year-old female who is followed by Dr. Kwok. The patient was known to have hypogammaglobulinemia diagnosed at age 31, currently on IVIG every three weeks. The patient was found to have chronic anemia. Her chem panel on June 19, 2015 showed creatinine of 1.1, BUN of 44. Her CBC showed white count 7.3, hemoglobin 8.6, hematocrit 28.2, platelet count 207. Peripheral blood smear showed hypochromia and microcytosis. Soluble transferrin receptor assay was high at 9.4. Serum ferritin was low at 9. HISTORY OF PRESENT ILLNESS Patient is here today for followup of her iron-deficiency anemia and hypogammaglobulinemia. She is complaining of occasional epistaxis. She has some cough with shortness of breath. She has pain in her joints all over due to arthritis, especially in the back, arms, shoulders and ankles. She has some numbness in her fingers. She bruises easily. She is weak, tired and fatigued. CURRENT MEDICATIONS 1. Morphine sulfate 15 mg b.i.d. 2. Omeprazole 20 mg b.i.d. 3. Lasix 40 mg daily. 4. [place] 7.5/325 one tablet b.i.d. p.r.n. 5. Clonazepam 0.5 mg q.h.s. 6. Paxil 10 mg once daily. 7. Spironolactone 12.5 mg daily. 8. Potassium chloride 10 mEq daily. 9. Lisinopril 2.5 mg daily. 10. Vitamin B12/folic acid 1 tablet each daily. 11. Magnesium oxide 500 mg every other day. 12. Bisacodyl 5 mg 2 tablets daily every other day. 13. IVIG every 3 weeks. 14. Cranberry 250 mg daily. 15. Multivitamins. 16. Preservision 2 tablets 2 times daily. 17. Calcium carbonate q.6 hours. 18. Probiotic daily. 19. Heparin flushes for her port. ALLERGIES SULFA, LATEX, FISH. PAST MEDICAL HISTORY 1. Hypogammaglobulinemia. 2. Chronic anemia. 3. Hypertension. 4. History of repeated pneumonia. 5. COPD. 6. History of congestive heart failure. 7. History of hiatal hernia. 8. History of peptic ulcer disease. 9. History of osteomyelitis of the neck. 10. History of shingles. 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 PAST SURGICAL HISTORY 1. Tonsillectomy in 1943. 2. Cholecystectomy in 1963. 3. Splenectomy for ruptured spleen. 4. Total abdominal hysterectomy with salpingo-oophorectomy in 1979. 5. Fracture repair of right ankle. FAMILY HISTORY Negative for cancer or blood diseases. SOCIAL HISTORY The patient is a with 5 children. She was a housewife. Denies any abuse of tobacco, alcohol, or drugs. REVIEW OF SYSTEMS CONSTITUTIONAL: No appetite or weight change. No fever, chills or sweating. No recent infection. HEENT: Ears: No tinnitus or hearing problem. Nose: She has occasional epistaxis. Throat: No sore throat or mouth ulcers. Eyes: No diplopia or visual changes. RESPIRATORY: She has cough and shortness of breath. She is using oxygen. CARDIOVASCULAR: No chest pain, orthopnea, or paroxysmal nocturnal dyspnea (PND) . No edema. No palpitations. GASTROINTESTINAL: No nausea or vomiting. No diarrhea or constipation. No change in bowel movements. No heartburn or swallowing difficulties. No abdominal pain. No jaundice. No hematemesis, melena or rectal bleeding. GENITOURINARY: No hematuria or dysuria. MUSCULOSKELETAL: She has generalized joint pains especially in the back, arms, shoulders and ankles. NEUROLOGICAL: She has numbness in her fingers. HEMATOLOGIC/LYMPHATIC: She bruises easily. She is weak, tired and fatigued. SKIN: No skin rash or lumps. PSYCHIATRIC: No anxiety or depression. PHYSICAL EXAMINATION GENERAL: Looks stable. Well-developed, well-nourished, and in no acute distress. VITAL SIGNS: Blood pressure 143/65, pulse 82 per minute, respirations 16 per minute, temperature 98.3, pulse ox 98% on 4L oxygen. HEENT: Head: Atraumatic. No sinus tenderness to palpation. Eyes: No icterus or conjunctivitis. Mouth and throat: No oral thrush or mucositis. NECK: Supple. No cervical or supraclavicular lymphadenopathy. LUNGS: Clear to auscultation and percussion bilaterally. HEART: Regular rate and rhythm. No gallops, murmurs, clicks or rubs. ABDOMEN: Soft and lax. No tenderness. No hepatosplenomegaly. No masses. EXTREMITIES: No cyanosis, clubbing or edema. LYMPHATICS: No peripheral lymphadenopathy. NEUROLOGICAL: Conscious, alert and oriented times three. No focal motor or sensory deficits. PSYCHIATRIC: Mood and affect appear normal. SKIN: No skin rash, bruise or purpuric eruption. DIAGNOSTIC DATA CBC shows a white count of 5.8, hemoglobin 12.9, hematocrit 37.2, platelet 157, 000. Chem panel totally normal except BUN 23, alkaline phosphatase 169, albumin 3.4. Other parameters are normal. Serum iron is 106, TIBC 333, iron saturation 31% and ferritin 47. ASSESSMENT 1. Iron deficiency anemia. Her ferritin initially was 9, and soluble transferrin receptor assay was high at 9.4. Patient was treated with iron supplementation with Injectafer 750 mg weekly for two weeks with normalization of her iron studies. Her current ferritin is 47, which is down from 50. Patient currently is taking ferrous sulfate 325 mg twice daily. Her hemoglobin is normal at 12.9 g/dL. I am planning to continue ferrous sulfate twice daily and I will see her again in three months with CBC and iron studies with ferritin. 2. Hypogammaglobulinemia, on IVIG every three weeks. We will continue the same. 3. Hypertension, on treatment. 4. History of congestive heart failure. 5. History of peptic ulcer disease. PLAN 1. Ferrous sulfate 325 mg twice daily. 2. Patient to return in 3 months with CBC and iron studies with ferritin. 3. Patient to contact us for any new concerns or complaint. 4. Continue IVIG every three weeks. MTDD
[2018-03-02] MEDS: NS(*) 0.9% 100 ML BAG 100 ML IVPB PRN (08:16)
[2018-03-02] MEDS: LIDOCAINE/SOD BICARB 8.4% SYR ID PRN (08:16)
[2018-03-02 08:17] VITALS: BP 156/78
[2018-03-02] MEDS: ACETAMINOPHEN 325 MG TAB PO PRN (08:17)
[2018-03-02] MEDS: methylPREDNIS SUCC 125 MG/2ML IVP PRN (08:17)
[2018-03-02 12:04] VITALS: BP 150/74
[2018-03-23 08:16] VITALS: BP 163/64
[2018-03-23] MEDS: ACETAMINOPHEN 325 MG TAB PO PRN (08:27)
[2018-03-23] MEDS: LIDOCAINE/SOD BICARB 8.4% SYR ID PRN (08:27)
[2018-03-23] MEDS: methylPREDNIS SUCC 125 MG/2ML IVP PRN (08:28)
[2018-03-23 11:06] VITALS: BP 148/88
[2018-03-23] MEDS: HEPARIN FLSH (PORT) 500 UN/5ML IVP PRN (11:06)
[~2018-04-13 08:07] MED LIST changes: +ALTEPLASE RECOMB 2 MG VIAL IVP PRN; +DEXTROSE 5%(*) 100 ML BAG 100 ML IVPB PRN; +IMMU GLOB(IGG) 10GR/100ML VIAL 40 GR in EMPTY EVACUATED CONT 0 ML IV ONE; +IMMU GLOB(IGG) 20GR/200ML VIAL 40 GR in EMPTY EVACUATED CONT 0 ML IV ONE; -LOSA50TA72 PO; +LOSA50TA74 PO; +NS(*) 0.9% 500 ML BAG 500 ML IV PRN; +WATER FOR INJ,STERILE 20 ML IVP PRN
[2018-04-13 08:08] VITALS: BP 172/78
[2018-04-13] MEDS: NS(*) 0.9% 100 ML BAG 100 ML IVPB PRN (08:12)
[2018-04-13] MEDS: LIDOCAINE/SOD BICARB 8.4% SYR ID PRN (08:12)
[2018-04-13] MEDS: ACETAMINOPHEN 325 MG TAB PO PRN (08:16)
[2018-04-13] MEDS: methylPREDNIS SUCC 125 MG/2ML IVP PRN (08:20)
[2018-04-13] MEDS ORDERED: IMMU GLOB(IGG) 10GR/100ML VIAL 40 GR in EMPTY EVACUATED CONT 0 ML IV ONE (08:45)
[2018-04-13 11:04] VITALS: BP 157/78
[2018-04-13] MEDS: HEPARIN FLSH (PORT) 500 UN/5ML IVP PRN (11:13)
--- NOTE | 2018-04-13 13:15 | RADIOLOGY IMAGING REPORT ---
FACILITY: [facility] [place] PATIENT NAME: Alanna Felipe : 1935 MR: [id number] V: [id number] EXAM DATE: ORDERING PHYSICIAN: KHOA MELENDEZ TECHNOLOGIST: Location: [facility] Patient: Alanna Felipe : 1935 Visit/Account:[id number] Date of Sevice: 04/13/2018 ELBOW 2 VIEW LEFT HISTORY: Fall one month ago, bruising, limited range of motion. COMPARISON: None. FINDINGS: 2 views were obtained of the left elbow. Anterior joint effusion is present. There is also marked s oft tissue swelling over the proximal forearm along its dorsal surface. There is no narrowing of the radiocapitellar joint with subchondral sclerosis, findings are consistent with degenerative disease. There is also mild narrowing of the articulation between the proximal ulna and trochlea. There is no definite fracture identified although joint effusion raises the possibility of an occult fracture. There is subtle sclerosis of the radial head neck junction, query mildly impacted fracture. There is no fracture identified of the humerus or proximal ulna. Bones are osteopenic. IMPRESSION: 1. Soft tissue swelling and joint effusion without definitive fracture (query minimally impacted rad ial head fracture). Occult fracture is suspected given the joint effusion and significant soft tissu e swelling. If clinically indicated, further evaluation of the elbow with CT or MRI may be considere d. Report Dictated By: Tiny Kent MD at 04/13/2018 1:07 PM Report E-Signed By: Tiny Kent MD at 04/13/2018 1:10 PM WSN:[id number]
== END 2018-04-18 ==
LOC: SPU 08:07
PROVIDERS: ATTEND Internal Medicine Hematology
DX: D50.9 Iron deficiency anemia, unspecified (principal); M86.68 Other chronic osteomyelitis, other site; D80.1 Nonfamilial hypogammaglobulinemia
CPT/HCPCS: 73070; 82728; 83540; 83550; 85025; 96365; 96366; 96375; A9270; G0463; J1459; J1642; J2930; J7050; Q0163; 82040; 82247; 82310; 82374; 82435; 82565; 82947; 84075; 84132; 84155; 84295; 84450; 84460; 84520; 99212

== ENCOUNTER 2018-05-02 05:56 | Emergency (ER) | payer MEDICARE, MEDICAID ==
[2018-05-02 05:58] VITALS: BP 151/76
--- NOTE | 2018-05-02 06:03 | ER Report ---
History and Physical Time Seen By MD: 05:56 HPI/ROS CHIEF COMPLAINT: Bleeding from right ankle HISTORY OF PRESENT ILLNESS: 82-year-old female brought in by EMS from home. She was rubbing Boel[place] and gel on her legs for pain relief. She appears to of ruptured a eroded varicose vein. She had heavy jadon bleeding from a varicose vein. She was able control bleeding. Patient denies taking blood thinners except an aspirin. Allergies: Coded Allergies: Sulfa (Sulfonamide Antibiotics) (Unverified Allergy, Unknown, nausea, vomiting, 07/25/16) latex (Unverified Allergy, Unknown, 07/25/16) Uncoded Allergies: FISH (Allergy, Unknown, 03/22/14) Home Meds Active Scripts Fluticasone/Salmeterol (ADVAIR 250-50 DISKUS) 1 Each Disk.w.dev, 1 EACH IH BID for 30 Days, #1 DISK 3 Refills Prov:KHOA MELENDEZ MD 04/25/18 Morphine Sulfate 15 Mg Er Tab (MORPHINE SULFATE 15 MG ER TAB) 15 Mg Tablet.er, 1 TAB PO BID, #60 TAB Prov:KHOA MELENDEZ MD 04/11/18 Doxycycline Hyclate (DOXYCYCLINE HYCLATE) 100 Mg Tablet, 1 TAB PO QDAY for 90 Days, #90 TAB 2 Refills Prov:KHOA MELENDEZ MD 03/28/18 Diclofenac Sodium 1% Gel (VOLTAREN 1% GEL) 100 Gm Gel..gram., 2 GM TOP QID for 90 Days, #6 TUBE 3 Refills Prov:KHOA MELENDEZ MD 03/28/18 Losartan Potassium (LOSARTAN POTASSIUM) 50 Mg Tablet, 1 TAB PO QDAY for 90 Days, #90 TAB 4 Refills Prov:KHOA MELENDEZ MD 02/28/18 Albuterol Sulfate (VENTOLIN HFA) 18 Gm Inh, 1-2 PUFF INH 3-4XD for 90 Days, #3 INH 4 Refills Prov:KHOA MELENDEZ MD 12/23/17 Fluticasone Prop 50 Mcg Ns (FLONASE 50 MCG NS) 16 Gm [place].susp, 2 SPRAYS NS QDAY for 30 Days, #1 BOT 4 Refills Prov:KHOA MELENDEZ MD 11/24/17 Furosemide (FUROSEMIDE) 40 Mg Tablet, 1 TAB PO DAILY, #180 TAB 4 Refills Prov:KHOA MELENDEZ MD 10/17/17 Duloxetine HCl (Duloxetine HCl) 30 Mg Capsule.dr, 1 CAP PO DAILY, #90 CAP 1 Refill Prov:KHOA MELENDEZ MD 09/21/17 Potassium Chloride (POTASSIUM CHLORIDE) 10 Meq Capsule.er, 1 MEQ PO BID, #180 TAB 4 Refills Prov:RADHA GARCÍA MD 05/06/17 Omeprazole (OMEPRAZOLE) 20 Mg Capsule.dr, 1 CAP PO BID, #180 CAP 4 Refills Prov:RADHA GARCÍA MD 05/06/17 Reported Medications Acetaminophen (TYLENOL EXTRA STRENGTH) 500 Mg Tablet, 2 TAB PO TID, CAP 10/26/17 Ferrous Sulfate (IRON) 325 Mg Tablet, 1 CAP PO DAILY, #60 TAB 2 Refills 07/16/17 Oxygen (OXYGEN) Inha, 2-4 L INH CONT, L 07/30/15 Calcium Carb & Cit/Vitamin D3 (CITRACAL + D ER TABLET) 1 Each Tablet.er, 1 EACH PO BID 07/30/15 Vitamin B Complex (VITAMIN B COMPLEX) 1 Each Capsule, 1 EACH PO DAILY, CAPSULE 07/30/15 Docusate Sodium (STOOL SOFTENER) 100 Mg Capsule, 2 CAP PO QODAY, CAPSULE 07/30/15 Immune Globulin,Gamma(Igg) 5 Gm Vial (PRIVIGEN 5 GM VIAL) 50 Ml Vial, 42 G IV Q3WK, VIAL no greater than 120 cc/hr 08/22/14 Vit A/Vit C/Vit E/Zinc/Copper (PRESERVISION AREDS TABLET) 1 Each Tablet, 2 TAB PO BID 03/22/14 Lutein (LUTEIN) 20 Mg Capsule, 1 CAP PO QDAY, CAPSULE 03/22/14 Lactobacillus Acidophilus (ACIDOPHILUS) 1 Each Capsule, 1 EACH PO QDAY, CAPSULE 03/22/14 Past Medical/Surgical History PAST MEDICAL HISTORY 1. Hypogammaglobulinemia. 2. Chronic anemia. 3. Hypertension. 4. History of repeated pneumonia. 5. COPD. 6. History of congestive heart failure. 7. History of hiatal hernia. 8. History of peptic ulcer disease. 9. History of osteomyelitis of the neck. 10. History of shingles. 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 PAST SURGICAL HISTORY 1. Tonsillectomy in 1943. 2. Cholecystectomy in 1963. 3. Splenectomy for ruptured spleen. 4. Total abdominal hysterectomy with salpingo-oophorectomy in 1979. 5. Fracture repair of right ankle. FAMILY HISTORY Negative for cancer or blood diseases. SOCIAL HISTORY The patient is a with 5 children. She was a housewife. Denies any abuse of tobacco, alcohol, or drugs. Reviewed Nurses Notes: Yes Old Medical Records Reviewed: Yes Hx Smoking: No Smoking Status: Never Smoker Exposure to Second Hand Smoke?: No Hx Substance Use Disorder: No Hx Alcohol Use: No Constitutional Vital Sign - Last 24 Hours 05/02/18 05:58 Temp 98.6 Pulse 83 Resp 16 B/P (MAP) 151/76 Pulse Ox 97 O2 Delivery Nasal Cannula Physical Exam General appearance: Alert no distress. Respiratory: Chest is non tender, lungs are clear to auscultation. Cardiac: Regular rate and rhythm Extremities: Examination of the right lower extremity reveals a neurovascularly intact right foot. There are numerous varicose veins on the leg. On the lateral aspect just posterior to the malleolus isn't eroded varicose vein with a tiny punctate lesion that is not actively bleeding at this time. I suspect that is the site where the blood that was pouring out of her ankle. The bleedings controlled at this time. There is a strong dorsalis pedis and posterior tibial pulses. There is no edema DIFFERENTIAL DIAGNOSIS: After history and physical exam differential diagnosis was considered for bleeding varicose vein, erosion a varicose vein Medical Decision Making ED Course/Re-evaluation ED Course Patient was admitted to an examination room. H&P was done. The differential diagnoses was considered. Patient's right lower extremity has bleeding controlled. There is a punctate lesion on a varicose vein over near the lateral malleolus. EMS applied a pressure dressing, which controlled bleeding in route. Patient's feet were cleaned. The wound was redressed with a pressure dressing. Patient was educated how to control bleeding with pressure wrap dressing. She is advised to get some Cob[place] and have it at home. Decision to Disposition Date: May 02, 2018 Decision to Disposition Time: 06:11 Depart Departure Latest Vital Signs Vital Signs Date Time Temp Pulse Resp B/P (MAP) Pulse Ox O2 Delivery O2 Flow Rate FiO2 05/02/18 05:58 98.6 83 16 151/76 97 Nasal Cannula Impression: Primary Impression: Bleeding from varicose veins of right lower extremity Condition: Improved Disposition: HOME OR SELF-CARE Referrals: KHOA MELENDEZ MD (PCP) Patient Instructions: Acute Wound Care (ED) Additional Instructions: Follow-up with Dr. Melendez as needed SHANE CAN DO May 02, 2018 06:03
== END 2018-05-02 06:26 | disposition home or self-care (01) ==
LOC: ER 06:03
DX: I83.891 Varicose veins of right lower extremity with other complications (principal)
CPT/HCPCS: 99282

== ENCOUNTER → 2018-05-02 | Outpatient (CLI) | payer MEDICARE, MEDICAID ==
[~2018-05-02] MED LIST changes: -ALTEPLASE RECOMB 2 MG VIAL IVP PRN; -DEXTROSE 5%(*) 100 ML BAG 100 ML IVPB PRN; -IMMU GLOB(IGG) 10GR/100ML VIAL 40 GR in EMPTY EVACUATED CONT 0 ML IV ONE; -IMMU GLOB(IGG) 20GR/200ML VIAL 40 GR in EMPTY EVACUATED CONT 0 ML IV ONE; -NS(*) 0.9% 500 ML BAG 500 ML IV PRN; -WATER FOR INJ,STERILE 20 ML IVP PRN
== END ==
LOC: AMB 05:36
PROVIDERS: ATTEND Nurse Practitioner
DX: S91.031A Puncture wound without foreign body, right ankle, initial encounter (principal)
CPT/HCPCS: A0425; A0429

== ENCOUNTER → 2018-05-04 | Outpatient (CLI) | payer MEDICARE, MEDICAID | LOC: RESP 19:52 | PROVIDERS: ATTEND Family Medicine | DX: G47.30 Sleep apnea, unspecified (principal); G47.36 Sleep related hypoventilation in conditions classified elsewhere ==

== ENCOUNTER 2018-07-27 08:17 | Outpatient (RCR) | payer MEDICARE, MEDICAID ==
[2018-05-04 08:13] VITALS: BP 129/59
[2018-05-04] MEDS: LIDOCAINE/SOD BICARB 8.4% SYR ID PRN (08:31)
[2018-05-04 08:40] LABS: PLATELET COUNT, AUTOMATED 185 K/uL (150-450)
[2018-05-04] MEDS: ACETAMINOPHEN 325 MG TAB PO PRN (09:09)
[2018-05-04] MEDS: methylPREDNIS SUCC 125 MG/2ML IVP PRN (09:11)
[2018-05-04] MEDS: HEPARIN FLSH (PORT) 500 UN/5ML IVP PRN (09:15)
[2018-05-24] MEDS: methylPREDNIS SUCC 125 MG/2ML IVP PRN (08:26)
[2018-05-24] MEDS: ACETAMINOPHEN 325 MG TAB PO PRN (08:26)
[2018-05-24] MEDS: NS(*) 0.9% 100 ML BAG 100 ML IVPB PRN (08:28)
[2018-05-24] MEDS: LIDOCAINE/SOD BICARB 8.4% SYR ID PRN (08:28)
[2018-05-24] MEDS: HEPARIN FLSH (PORT) 500 UN/5ML IVP PRN (08:28)
[2018-05-24 08:36] VITALS: BP 148/66
[2018-05-24 11:52] VITALS: BP 135/64
[2018-06-15 08:11] VITALS: BP 175/75
[2018-06-15] MEDS: LIDOCAINE/SOD BICARB 8.4% SYR ID PRN (08:14)
[2018-06-15] MEDS: NS(*) 0.9% 100 ML BAG 100 ML IVPB PRN (08:14)
[2018-06-15] MEDS: ACETAMINOPHEN 325 MG TAB PO PRN (08:21)
[2018-06-15] MEDS: methylPREDNIS SUCC 125 MG/2ML IVP PRN (08:22)
[2018-06-15] MEDS: HEPARIN FLSH (PORT) 500 UN/5ML IVP PRN (10:29)
[2018-07-06 09:05] VITALS: BP 153/61
[2018-07-06] MEDS: LIDOCAINE/SOD BICARB 8.4% SYR ID PRN (09:12)
[2018-07-06] MEDS: NS(*) 0.9% 100 ML BAG 100 ML IVPB PRN (09:12)
[2018-07-06] MEDS: ACETAMINOPHEN 325 MG TAB PO PRN (09:13)
[2018-07-06] MEDS: methylPREDNIS SUCC 125 MG/2ML IVP PRN (09:14)
[2018-07-06] MEDS: HEPARIN FLSH (PORT) 500 UN/5ML IVP PRN (09:14)
[2018-07-06 09:21] LABS: PLATELET COUNT, AUTOMATED 180 K/uL (150-450)
[2018-07-06 12:29] VITALS: BP 148/84
[2018-07-21 14:53] VITALS: BP 148/76
--- NOTE | 2018-07-21 21:12 | EL-TAR[facility] ONCOLOGY NOTE ---
EVENT DATE: July 21, 2018 DIAGNOSES 1. Iron deficiency anemia. 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 4. Hypertension. 5. History of congestive heart failure. 6. History of peptic ulcer disease. CHIEF COMPLAINT The patient is here today for followup of her iron deficiency anemia and hypogammaglobulinemia. HEMATOLOGY HISTORY The patient is an 82-year-old female who is followed by Dr. Kwok. The patient is known to have hypogammaglobulinemia, diagnosed at age 31, currently on IVIG every three weeks. The patient was found to have chronic anemia. Her chem panel on June 19, 2015, showed creatinine of 1.1, BUN of 44. Her CBC showed white count 7.3, hemoglobin 8.6, hematocrit 28.2, platelet count 207. Peripheral blood smear showed hypochromia and microcytosis. Soluble transferrin receptor assay was high at 9.4. Serum ferritin was low at 9. HISTORY OF PRESENT ILLNESS Patient is here today for followup of her iron deficiency anemia and hypogammaglobulinemia. She is complaining of cough with expectoration occasionally. She has generalized joint pains all over. She has some numbness in her fingers. She is weak, tired, and fatigued. PAST MEDICAL HISTORY 1. Hypogammaglobulinemia. 2. Chronic anemia. 3. Hypertension. 4. History of repeated pneumonia. 5. COPD. 6. History of congestive heart failure. 7. History of hiatal hernia. 8. History of peptic ulcer disease. 9. History of osteomyelitis of the neck. 10. History of shingles. 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 PAST SURGICAL HISTORY 1. Tonsillectomy in 1943. 2. Cholecystectomy in 1963. 3. Splenectomy for ruptured spleen. 4. Total abdominal hysterectomy with salpingo-oophorectomy in 1979. 5. Fracture repair of right ankle. FAMILY HISTORY Negative for cancer or blood diseases. 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 She is a housewife. Denies any abuse of tobacco, alcohol, or drugs. CURRENT MEDICATIONS 1. Morphine sulfate 15 mg b.i.d. 2. Omeprazole 20 mg b.i.d. 3. Lasix 40 mg daily. 4. [place] 7.5/325 one tablet b.i.d. p.r.n. 5. Clonazepam 0.5 mg at bedtime. 6. Paxil 10 mg once daily. 7. Spironolactone 12.5 mg daily. 8. Potassium chloride 10 mEq daily. 9. Lisinopril 2.5 mg daily. 10. Vitamin B12/folic acid one tablet each daily. 11. Magnesium oxide 500 mg every other day. 12. Bisacodyl 5 mg two tablets daily every other day. 13. IVIG every three weeks. 14. Cranberry 250 mg daily. 15. Multivitamins. 16. PreserVision two tablets two times daily. 17. Calcium carbonate q.6 hours. 18. Probiotic daily. 19. Heparin flushes for her port. ALLERGIES SULFA, LATEX, FISH. REVIEW OF SYSTEMS CONSTITUTIONAL: No appetite or weight change. No fever, chills, or sweating. No recent infection. HEENT: Ears: No tinnitus or hearing problem. Nose: No nasal discharge or epistaxis. Throat: No sore throat or mouth ulcers. Eyes: No diplopia or visual changes. RESPIRATORY: No shortness of breath. Patient has cough with occasional expectoration. No hemoptysis. CARDIOVASCULAR: No chest pain, orthopnea, or paroxysmal nocturnal dyspnea (PND). No edema. No palpitations. GASTROINTESTINAL: No nausea or vomiting. No diarrhea or constipation. No change in bowel movements. No heartburn or swallowing difficulties. No abdominal pain. No jaundice. No hematemesis, melena or rectal bleeding. GENITOURINARY: No hematuria or dysuria. MUSCULOSKELETAL: She has generalized pain all over her joints. NEUROLOGICAL: She has numbness in her fingers. No headaches or convulsions. HEMATOLOGIC/LYMPHATIC: No bleeding or easy bruising. She is weak, tired, and fatigued. No enlarged lymph nodes. SKIN: No skin rash or lumps. PSYCHIATRIC: No anxiety or depression. PHYSICAL EXAMINATION GENERAL: Looks stable. Well developed, well nourished, and in no acute distress. VITAL SIGNS: Blood pressure 148/76, pulse 84 per minute, respirations 16 per minute, temperature 97.9, pulse ox 91% on 3L oxygen. HEENT: Head: Atraumatic. No sinus tenderness to palpation. Eyes: No icterus or conjunctivitis. Mouth and Throat: No oral thrush or mucositis. NECK: Supple. No cervical or supraclavicular lymphadenopathy. LUNGS: Clear to auscultation and percussion bilaterally. HEART: Regular rate and rhythm. No gallops, murmurs, clicks, or rubs. ABDOMEN: Soft and lax. No tenderness. No hepatosplenomegaly. No masses. EXTREMITIES: No cyanosis, clubbing, or edema. LYMPHATICS: No peripheral lymphadenopathy. NEUROLOGICAL: Conscious, alert, and oriented times three. No focal motor or sensory deficits. PSYCHIATRIC: Mood and affect appear normal. SKIN: No skin rash, bruise, or purpuric eruption. DIAGNOSTIC DATA CBC showed white count 8.9, hemoglobin 12.4, hematocrit 37.1, platelet 180,000. Chem panel totally normal except alkaline phosphatase 129 and BUN 34. Serum iron is 83, TIBC is 362, iron saturation 22.9, and ferritin 35 which is down from 45. ASSESSMENT 1. Iron deficiency anemia. Her ferritin initially was 9, and soluble transferrin receptor assay was high at 9.4. Patient was treated with iron supplementation with Injectafer 750 mg weekly for two weeks with normalization of her iron studies. Her current ferritin is 35, which is down from 45, but other iron studies are totally normal. She is currently on ferrous sulfate 325 mg twice daily, and her hemoglobin currently is 12.4 g/dL. I am planning to continue ferrous sulfate 325 mg twice daily, and I will see her again in three months with CBC and iron studies with ferritin. 2. Hypogammaglobulinemia, on IVIG every three weeks. Will continue the same. 3. Hypertension, on treatment. 4. History of congestive heart failure. 5. History of peptic ulcer disease. PLAN 1. Ferrous sulfate 325 mg twice daily. 2. Patient to return in three months with CBC and iron studies with ferritin. 3. Continue IVIG every three weeks. 4. Patient to contact us for any new concern or complaints. JLD
[~2018-07-27 08:17] MED LIST changes: +ALTEPLASE RECOMB 2 MG VIAL IVP PRN; +DEXTROSE 5%(*) 100 ML BAG 100 ML IVPB PRN; -HYDR-4308 PO; +HYDR-654 PO; +IMMU GLOB(IGG) 20GR/200ML VIAL 200 ML IV ONE; +IMMU GLOB(IGG) 20GR/200ML VIAL 40 GR in EMPTY EVACUATED CONT 0 ML IVPB ONE; -LOSA50TA74 PO; +LOSA50TA80 PO; +NS(*) 0.9% 250 ML BAG 250 ML IVPB PRN; +NS(*) 0.9% 500 ML BAG 500 ML IV PRN; +WATER FOR INJ,STERILE 20 ML IVP PRN
[2018-07-27 08:21] VITALS: BP 161/70
[2018-07-27] MEDS: ACETAMINOPHEN 325 MG TAB PO PRN (08:44)
[2018-07-27] MEDS ORDERED: IMMU GLOB(IGG) 20GR/200ML VIAL 200 ML IV ONE ×2 (08:45)
[2018-07-27] MEDS: methylPREDNIS SUCC 125 MG/2ML IVP PRN (08:45)
[2018-07-27] MEDS: NS(*) 0.9% 100 ML BAG 100 ML IVPB PRN (09:21)
[2018-07-27] MEDS: LIDOCAINE/SOD BICARB 8.4% SYR ID PRN (09:30)
[2018-07-27 12:38] VITALS: BP 139/72
[2018-07-27] MEDS: HEPARIN FLSH (PORT) 500 UN/5ML IVP PRN (12:41)
== END 2018-08-02 ==
LOC: SPU 08:17
PROVIDERS: ATTEND Internal Medicine Hematology
DX: D64.9 Anemia, unspecified (principal); M86.68 Other chronic osteomyelitis, other site; D80.1 Nonfamilial hypogammaglobulinemia; G47.30 Sleep apnea, unspecified; G47.36 Sleep related hypoventilation in conditions classified elsewhere; I10 Essential (primary) hypertension; R53.83 Other fatigue; R53.1 Weakness; Z86.79 Personal history of other diseases of the circulatory system; Z87.11 Personal history of peptic ulcer disease
CPT/HCPCS: 36591; 82728; 83540; 83550; 85025; 95810; 96365; 96366; 96375; A9270; G0463; J1459; J1642; J2930; J7050; Q0163; 82040; 82247; 82310; 82374; 82435; 82565; 82947; 84075; 84132; 84155; 84295; 84450; 84460; 84520; 99212

== ENCOUNTER 2018-11-09 08:53 | Outpatient (RCR) | payer MEDICARE, MEDICAID ==
[2018-08-17 08:45] VITALS: BP 153/74
[2018-08-17] MEDS: methylPREDNIS SUCC 125 MG/2ML IVP PRN (09:09)
[2018-08-17] MEDS: NS(*) 0.9% 100 ML BAG 100 ML IVPB PRN (09:10)
[2018-08-17] MEDS: ACETAMINOPHEN 325 MG TAB PO PRN (09:10)
[2018-08-17] MEDS: LIDOCAINE/SOD BICARB 8.4% SYR ID PRN (09:10)
[2018-08-17] MEDS: HEPARIN FLSH (PORT) 500 UN/5ML IVP PRN (09:10)
[2018-09-07 08:38] VITALS: BP 160/80
[2018-09-07] MEDS: NS(*) 0.9% 100 ML BAG 100 ML IVPB PRN (09:01)
[2018-09-07] MEDS: LIDOCAINE/SOD BICARB 8.4% SYR ID PRN (09:02)
[2018-09-07] MEDS: ACETAMINOPHEN 325 MG TAB PO PRN (09:02)
[2018-09-07] MEDS: methylPREDNIS SUCC 125 MG/2ML IVP PRN (09:03)
[2018-09-07] MEDS: IMMU GLOB(IGG) 20GR/200ML VIAL 200 ML IV SCH ×2 (09:32→10:58)
[2018-09-07 12:30] VITALS: BP 150/73
[2018-09-07] MEDS: HEPARIN FLSH (PORT) 500 UN/5ML IVP PRN (12:47)
[2018-09-28 08:38] VITALS: BP 155/83
[2018-09-28] MEDS: ACETAMINOPHEN 325 MG TAB PO PRN (08:54)
[2018-09-28] MEDS: LIDOCAINE/SOD BICARB 8.4% SYR ID PRN (08:54)
[2018-09-28] MEDS: methylPREDNIS SUCC 125 MG/2ML IVP PRN (08:55)
[2018-09-28 08:59] LABS: PLATELET COUNT, AUTOMATED 169 K/uL (150-450)
[2018-09-28] MEDS: HEPARIN FLSH (PORT) 500 UN/5ML IVP PRN (13:12)
[2018-10-19 08:42] VITALS: BP 144/89
[2018-10-19] MEDS: ACETAMINOPHEN 325 MG TAB PO PRN (08:59)
[2018-10-19] MEDS: methylPREDNIS SUCC 125 MG/2ML IVP PRN (09:01)
[2018-10-19] MEDS: LIDOCAINE/SOD BICARB 8.4% SYR ID PRN (09:02)
[2018-10-19] MEDS: NS(*) 0.9% 100 ML BAG 100 ML IVPB PRN (09:02)
--- NOTE | 2018-10-19 09:41 | NUR ---
Pt completed initial HADS screening. D:1, A:0, no concerns at this time.
[2018-10-19 12:06] VITALS: BP 157/75
[2018-10-19] MEDS: HEPARIN FLSH (PORT) 500 UN/5ML IVP PRN (12:10)
[2018-10-21 08:05] VITALS: BP 164/69
--- NOTE | 2018-10-21 09:06 | EL-TAR[facility] ONCOLOGY NOTE ---
EVENT DATE: October 21, 2018 DIAGNOSES 1. Iron deficiency anemia. 2. 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 4. Hypertension. 5. History of congestive heart failure. 6. History of peptic ulcer disease. CHIEF COMPLAINT The patient is here today for followup of her iron deficiency anemia and hypogammaglobulinemia. HEMATOLOGY HISTORY The patient is an 82-year-old female who is followed by Dr. Kwok. The patient is known to have hypogammaglobulinemia, diagnosed at age 31, currently on IVIG every three weeks. The patient was found to have chronic anemia. Her chem panel on June 19, 2015, showed creatinine of 1.1, BUN of 44. Her CBC showed white count 7.3, hemoglobin 8.6, hematocrit 28.2, platelet count 207. Peripheral blood smear showed hypochromia and microcytosis. Soluble transferrin receptor assay was high at 9.4. Serum ferritin was low at 9. HISTORY OF PRESENT ILLNESS Patient is here today for followup of her iron deficiency anemia. She is complaining of cough with expectoration, shortness of breath and wheezing sometime. She has arthritic pains mainly in the hands, feet, back and shoulders. 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 She bruises easily and occasionally she has fatigue. PAST MEDICAL HISTORY 1. Hypogammaglobulinemia. 2. Chronic anemia. 3. Hypertension. 4. History of repeated pneumonia. 5. COPD. 6. History of congestive heart failure. 7. History of hiatal hernia. 8. History of peptic ulcer disease. 9. History of osteomyelitis of the neck. 10. History of shingles. 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 PAST SURGICAL HISTORY 1. Tonsillectomy in 1943. 2. Cholecystectomy in 1963. 3. Splenectomy for ruptured spleen. 4. Total abdominal hysterectomy with salpingo-oophorectomy in 1979. 5. Fracture repair of right ankle. FAMILY HISTORY Negative for cancer or blood diseases. 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 She is a housewife. Denies any abuse of tobacco, alcohol, or drugs. CURRENT MEDICATIONS 1. Morphine sulfate 15 mg b.i.d. 2. Omeprazole 20 mg b.i.d. 3. Lasix 40 mg daily. 4. [place] 7.5/325 one tablet b.i.d. p.r.n. 5. Clonazepam 0.5 mg at bedtime. 6. Paxil 10 mg once daily. 7. Spironolactone 12.5 mg daily. 8. Potassium chloride 10 mEq daily. 9. Lisinopril 2.5 mg daily. 10. Vitamin B12/folic acid one tablet each daily. 11. Magnesium oxide 500 mg every other day. 12. Bisacodyl 5 mg two tablets daily every other day. 13. IVIG every three weeks. 14. Cranberry 250 mg daily. 15. Multivitamins. 16. PreserVision two tablets two times daily. 17. Calcium carbonate q.6 hours. 18. Probiotic daily. 19. Heparin flushes for her port. ALLERGIES SULFA, LATEX, FISH. REVIEW OF SYSTEMS CONSTITUTIONAL: No appetite or weight change. No fever, chills, or sweating. No recent infection. HEENT: Ears: No tinnitus or hearing problem. Nose: No nasal discharge or epistaxis. Throat: No sore throat or mouth ulcers. Eyes: No diplopia or visual changes. RESPIRATORY: She has cough with expectoration, shortness of breath and wheezing occasionally. CARDIOVASCULAR: No chest pain, orthopnea, or paroxysmal nocturnal dyspnea (PND). No edema. No palpitations. GASTROINTESTINAL: No nausea or vomiting. No diarrhea or constipation. No change in bowel movements. No heartburn or swallowing difficulties. No abdominal pain. No jaundice. No hematemesis, melena or rectal bleeding. GENITOURINARY: No hematuria or dysuria. MUSCULOSKELETAL: She has pain in the hands, feet, back and shoulders. NEUROLOGICAL: She has some numbness in her fingers. HEMATOLOGIC/LYMPHATIC: No bruises easily. She is weak, tired and fatigued occasionally. SKIN: No skin rash or lumps. PSYCHIATRIC: No anxiety or depression. PHYSICAL EXAMINATION GENERAL: Looks stable. Well developed, well nourished, and in no acute distress. VITAL SIGNS: Blood pressure 164/69, pulse 80 per minute, respirations 16 per minute, temperature 97.7, pulse ox 97% on 3L oxygen. HEENT: Head: Atraumatic. No sinus tenderness to palpation. Eyes: No icterus or conjunctivitis. Mouth and Throat: No oral thrush or mucositis. NECK: Supple. No cervical or supraclavicular lymphadenopathy. LUNGS: Clear to auscultation and percussion bilaterally. HEART: Regular rate and rhythm. No gallops, murmurs, clicks, or rubs. ABDOMEN: Soft and lax. No tenderness. No hepatosplenomegaly. No masses. EXTREMITIES: No cyanosis, clubbing, or edema. LYMPHATICS: No peripheral lymphadenopathy. NEUROLOGICAL: Conscious, alert, and oriented times three. No focal motor or sensory deficits. PSYCHIATRIC: Mood and affect appear normal. SKIN: No skin rash, bruise, or purpuric eruption. DIAGNOSTIC DATA CBC showed white count 7.1, hemoglobin 13, hematocrit 38.6, platelet 169,000. Iron studies show serum iron 117, TIBC 352, iron saturation 33.2% and ferritin 32. ASSESSMENT 1. Iron deficiency anemia. Her ferritin initially was 9 and soluble transferrin receptor assay was high at 9.4. Patient was treated at that time with iron supplementation with Injectafer 750 mg weekly for two weeks with normalization of her iron studies. Her current ferritin is 32, which is nearly stable but other iron studies are normal. She is currently taking ferrous sulfate 325 mg twice daily and her current hemoglobin is 13 g/dL. I am planning to decrease the dose of iron supplementation to one pill a day instead of two and I will see her again in three months with CBC, iron studies with ferritin. 2. Hypogammaglobulinemia, on IVIG every three weeks. Continue same treatment. 3. Hypertension, on treatment. 4. History of congestive heart failure. 5. History of peptic ulcer disease. PLAN 1. Ferrous sulfate 325 mg once daily. 2. Continue IVIG every three weeks as per schedule. 3. Patient to return in three months with CBC, iron studies with ferritin. 4. Patient to contact us for any new concern or complaints. [facility]
[~2018-11-09 08:53] MED LIST changes: -IMMU GLOB(IGG) 20GR/200ML VIAL 40 GR in EMPTY EVACUATED CONT 0 ML IVPB ONE; -NS(*) 0.9% 250 ML BAG 250 ML IVPB PRN; +[UNRECOGNIZED DRUG - MIXTURE] IVPB ONE; +[UNRECOGNIZED DRUG - OTHER] IVPB ONE
[2018-11-09 09:01] VITALS: BP 147/105
[2018-11-09] MEDS: LIDOCAINE/SOD BICARB 8.4% SYR ID PRN (09:04)
[2018-11-09] MEDS: HEPARIN FLSH (PORT) 500 UN/5ML IVP PRN (09:05)
[2018-11-09] MEDS: NS(*) 0.9% 100 ML BAG 100 ML IVPB PRN (09:05)
[2018-11-09] MEDS: ACETAMINOPHEN 325 MG TAB PO PRN (09:11)
[2018-11-09] MEDS: methylPREDNIS SUCC 125 MG/2ML IVP PRN (09:11)
[2018-11-09] MEDS ORDERED: IMMU GLOB(IGG) 20GR/200ML VIAL 200 ML IV ONE ×2 (09:15)
[2018-11-09 12:35] VITALS: BP 147/74
== END 2018-11-14 ==
LOC: SPU 08:53
PROVIDERS: ATTEND Internal Medicine Hematology
DX: D50.9 Iron deficiency anemia, unspecified (principal); M86.68 Other chronic osteomyelitis, other site; D80.1 Nonfamilial hypogammaglobulinemia; I10 Essential (primary) hypertension; R53.1 Weakness; R53.83 Other fatigue
CPT/HCPCS: 82728; 83540; 83550; 85025; 96365; 96366; 96375; A9270; G0463; J1459; J1642; J2930; J7040; J7050; Q0163; 99213

== ENCOUNTER → 2018-12-05 | Outpatient (CLI) | payer MEDICARE, MEDICAID ==
[~2018-12-05] MED LIST changes: -ALTEPLASE RECOMB 2 MG VIAL IVP PRN; +CLIN300C99 PO; -DEXTROSE 5%(*) 100 ML BAG 100 ML IVPB PRN; -IMMU GLOB(IGG) 20GR/200ML VIAL 200 ML IV ONE; -NS(*) 0.9% 500 ML BAG 500 ML IV PRN; -WATER FOR INJ,STERILE 20 ML IVP PRN; -[UNRECOGNIZED DRUG - MIXTURE] IVPB ONE; -[UNRECOGNIZED DRUG - OTHER] IVPB ONE
--- NOTE | 2018-12-05 17:01 | RADIOLOGY IMAGING REPORT ---
FACILITY: [facility] - [place] PATIENT NAME: Alanna Felipe : 1935 MR: [id number] V: [id number] EXAM DATE: ORDERING PHYSICIAN: LOBO VO TECHNOLOGIST: Location: [facility] - [place] Patient: Alanna Felipe : 1935 Visit/Account:[id number] Date of Sevice: 12/05/2018 CT SINUS W/O CON COMPARISONS: None ADDITIONAL PERTINENT HISTORY: Chronic sinusitis TECHNIQUE: Multiple axial images were obtained through the paranasal sinuses with coronal and sagitta l reformatted images. No IV contrast was administered. One of the following dose optimization techni ques was utilized in the performance of this exam: Automated exposure control; adjustment of the mA a nd/or kV according to the patient's size; or use of an iterative reconstruction technique. Specific details can be referenced in the facility's radiology CT exam operational policy. FINDINGS: Maxillary sinuses: Hypoplastic maxillary sinuses bilaterally with severe mucosal thickening.. Frontal sinuses: Negative. Ethmoid air cells: Negative. Sphenoid sinuses:Negative. Nasal septum: Mild nasal septal deviation to the left.. Drainage pathways: Patent Paranasal variance: None Medial orbital francis, cribriform plate, and orbital floors: Negative. Visualized bony skull base Negative. Visualized intracranial contents: Negative. Orbits and surrounding soft tissues: Negative. IMPRESSION: 1. Findings most consistent with long-standing inflammatory changes involving both maxillary sinuses. Report Dictated By: Lonny Polk MD at 12/05/2018 4:53 PM Report E-Signed By: Lonny Polk MD at 12/05/2018 4:55 PM WSN:[email or web address]
--- NOTE | 2018-12-05 17:02 | RADIOLOGY IMAGING REPORT ---
FAC[place] [facility] [place]IENT NAME: Alanna Felipe : 1935 MR: [id number] V: [id number] EXAM DATE: ORDERING PHYSICIAN: LOBO VO TECHNOLOGIST: Location: [facility] Patient: Alanna Felipe : 1935 Visit/Account:[id number] Date of Sevice: 12/05/2018 CHEST PA LAT INDICATION: chronic cough COMPARISON: 12/23/2017 FINDINGS: The cardiac silhouette remains enlarged. Right-sided Mediport is stable in position. The right hemidiaphragm remains elevated. No infiltrate is identified. There is no pneumothorax or pleural effusion. IMPRESSION: 1. No acute cardiopulmonary process. Report Dictated By: Chava Ford at 12/05/2018 4:57 PM Report E-Signed By: Chava Ford at 12/05/2018 4:58 PM WSN:[id number]
== END ==
LOC: CT 01:29
PROVIDERS: ATTEND Physician Assistant
DX: I51.7 Cardiomegaly (principal); R91.8 Other nonspecific abnormal finding of lung field; J34.2 Deviated nasal septum; J32.0 Chronic maxillary sinusitis
CPT/HCPCS: 70486; 71046

== ENCOUNTER → 2019-01-19 | Outpatient (CLI) | payer MEDICARE, MEDICAID ==
[~2019-01-19] MED LIST changes: -OMEP-125 PO; +OMEP-126 PO
--- NOTE | 2019-01-19 14:16 | RADIOLOGY IMAGING REPORT ---
[place] [facility] [place] Alanna Felipe : 1935 MR: [id number] V: [id number] EXAM DATE: ORDERING PHYSICIAN: KHOA MELENDEZ TECHNOLOGIST: Location: [facility] Patient: Alanna Felipe : 1935 Visit/Account:[id number] Date of Sevice: 01/19/2019 BONE DENSITY HISTORY: DEXA Scan Clinical history: Osteopenia. Comparison: DEXA scan from 07/10/2015. LUMBAR SPINE: The bone mineral density (BMD) measured from L1-L4 correlates with a Z-score 0.9 and a T-score of -0 .9 which is borderline osteopenia as defined by the World Health Organization. The corresponding ris k of fracture in the lumbar spine is increased nearly 2 times compared with a young adult reference p opulation. This value has improved by 4.9 % since the prior study. More than 5% change is considere d significant. HIP: Bone mineral density (BMD) measured in the Left total hip region correlates with a Z-score -0.3 and a T-score of -2.3 which is osteopenia as defined by the World Health Organization. The corresponding risk of fracture in the hip is increased 5 times compared with a young adult reference population. Th is value has remains stable by 0.0 % since the prior study. More than 5% change is considered signif icant. Bone mineral density (BMD) measured in the Femoral Neck region measures 0.660 g/cm2. T score of -2.7 . Osteoporosis. Fracture risk increased 7 times IMPRESSION: 1. Lumbar spine: Borderline osteopenia. There has been improvement by 4.9% in the bone mineral dens ity since the previous exam. 2. Left Total Hip: Osteopenia. There has been no change in the bone mineral density since the previ ous exam. 3. Femoral Neck: Bone Mineral Density is 0.660 g/cm2 . Osteoporosis The next DEXA scan of this patient should include the following sites: L1-L4 and the left hip. FRAX? WHO Fracture Risk Assessment Tool link: <http://www.shef.ac.uk/FRAX/tool.jsp?[email or web address]> PLEASE NOTE: 1) The World Health Organization defines low BMD as follows: T-score Normal > -1 Osteopenia < -1 and > -2.5 Osteoporosis < -2.5 without fractures Established osteoporosis < -2.5 with fractures 2) In general, you may wish to consider: Diagnosis Treatment Follow-up DEXA Normal BMD Prevention 2-3 years Osteopenia Prevention/therapy 1-2 years Osteoporosis Therapy Yearly 3) Fracture risk estimated from the T-score is more accurate for vertebral fractures (often spontane ous) than for hip fractures. Report Dictated By: Broderick Aguero MD at 01/19/2019 2:08 PM Report E-Signed By: Broderick Aguero MD at 01/19/2019 2:10 PM WSN:[email or web address]
== END ==
LOC: RAD 00:44
PROVIDERS: ATTEND Family Medicine
DX: M85.88 Other specified disorders of bone density and structure, other site (principal)
CPT/HCPCS: 77080

== ENCOUNTER 2019-02-22 08:43 | Outpatient (RCR) | payer MEDICARE, MEDICAID ==
[2018-11-30 08:37] VITALS: BP 160/62
[2018-11-30] MEDS: LIDOCAINE/SOD BICARB 8.4% SYR ID PRN (08:44)
[2018-11-30] MEDS: NS(*) 0.9% 100 ML BAG 100 ML IVPB PRN (08:45)
[2018-11-30] MEDS: HEPARIN FLSH (PORT) 500 UN/5ML IVP PRN (08:46)
[2018-11-30] MEDS: ACETAMINOPHEN 325 MG TAB PO PRN (08:56)
[2018-11-30 12:29] VITALS: BP 147/65
[2018-12-21] MEDS: LIDOCAINE/SOD BICARB 8.4% SYR ID PRN (08:45)
[2018-12-21 09:00] VITALS: BP 179/73
[2018-12-21] MEDS: ACETAMINOPHEN 325 MG TAB PO PRN (09:00)
[2018-12-21] MEDS: methylPREDNIS SUCC 125 MG/2ML IVP PRN (09:00)
[2018-12-21 12:50] VITALS: BP 179/80
[2019-01-11 08:51] VITALS: BP 178/72
[2019-01-11] MEDS: LIDOCAINE/SOD BICARB 8.4% SYR ID PRN (08:52)
[2019-01-11] MEDS: methylPREDNIS SUCC 125 MG/2ML IVP PRN (08:53)
[2019-01-11] MEDS: HEPARIN FLSH (PORT) 500 UN/5ML IVP PRN (08:53)
[2019-01-11] MEDS: NS(*) 0.9% 250 ML BAG 250 ML IVPB PRN (08:53)
[2019-01-11] MEDS: ACETAMINOPHEN 325 MG TAB PO PRN (08:53)
[2019-02-01 09:09] LABS: PLATELET COUNT, AUTOMATED 131 K/uL (150-450)
[2019-02-01] MEDS: ACETAMINOPHEN 325 MG TAB PO PRN (09:12)
[2019-02-01] MEDS: methylPREDNIS SUCC 125 MG/2ML IVP PRN (09:12)
[2019-02-01] MEDS: HEPARIN FLSH (PORT) 500 UN/5ML IVP PRN (09:13)
[2019-02-01] MEDS: NS(*) 0.9% 250 ML BAG 250 ML IVPB PRN (09:13)
[2019-02-01] MEDS: LIDOCAINE/SOD BICARB 8.4% SYR ID PRN (09:13)
[2019-02-01 09:28] VITALS: BP 136/77
[2019-02-01 13:04] VITALS: BP 147/77
[2019-02-16 15:32] VITALS: BP 171/70
--- NOTE | 2019-02-16 16:21 | ONCOLOGY FOLLOW UP NOTE ---
EVENT DATE: February 16, 2019 DIAGNOSES 1. Iron deficiency anemia. 2. 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 4. Hypertension. 5. History of congestive heart failure. 6. History of peptic ulcer disease. CHIEF COMPLAINT Patient is here today for followup of her iron deficiency anemia and hypogammaglobulinemia. HEMATOLOGY HISTORY Patient is an 83-year-old female who is followed by Dr. Kwok. The patient is known to have hypogammaglobulinemia, diagnosed at age 31, currently on IVIG every three weeks. Patient was found to have chronic anemia. Her chem panel on June 19, 2015, showed creatinine of 1.1, BUN of 44. Her CBC showed white count 7.3, hemoglobin 8.6, hematocrit 28.2, platelet count 207. Peripheral blood smear showed hypochromia and microcytosis. Soluble transferrin receptor assay was high at 9.4. Serum ferritin was low at 9. HISTORY OF PRESENT ILLNESS Patient is here today for followup of her iron deficiency anemia. Patient is complaining of cough with occasional phlegm and shortness of breath. She has pain in her back, shoulders, arms, and legs. She has also some numbness in her hands. Other than that, she is very stable and doing fine and continues to have her IVIG every three weeks. PAST MEDICAL HISTORY 1. Hypogammaglobulinemia. 2. Chronic anemia. 3. Hypertension. 4. History of repeated pneumonia. 5. COPD. 6. History of congestive heart failure. 7. History of hiatal hernia. 8. History of peptic ulcer disease. 9. History of osteomyelitis of the neck. 10. History of shingles. 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 PAST SURGICAL HISTORY 1. Tonsillectomy in 1943. 2. Cholecystectomy in 1963. 3. Splenectomy for ruptured spleen. 4. Total abdominal hysterectomy with salpingo-oophorectomy in 1979. 5. Fracture repair of right ankle. FAMILY HISTORY Negative for cancer or blood diseases. 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 She is a housewife. Denies any abuse of tobacco, alcohol, or drugs. CURRENT MEDICATIONS 1. Morphine sulfate 15 mg b.i.d. 2. Omeprazole 20 mg b.i.d. 3. Lasix 40 mg daily. 4. [place] 7.5/325 one tablet b.i.d. p.r.n. 5. Clonazepam 0.5 mg at bedtime. 6. Paxil 10 mg once daily. 7. Spironolactone 12.5 mg daily. 8. Potassium chloride 10 mEq daily. 9. Lisinopril 2.5 mg daily. 10. Vitamin B12/folic acid one tablet each daily. 11. Magnesium oxide 500 mg every other day. 12. Bisacodyl 5 mg two tablets daily every other day. 13. IVIG every three weeks. 14. Cranberry 250 mg daily. 15. Multivitamins. 16. PreserVision two tablets two times daily. 17. Calcium carbonate q.6 hours. 18. Probiotic daily. 19. Heparin flushes for her port. ALLERGIES SULFA, LATEX, FISH. REVIEW OF SYSTEMS CONSTITUTIONAL: No appetite or weight change. No fever, chills, or sweating. No recent infection. HEENT: Ears: No tinnitus or hearing problem. Nose: No nasal discharge or epistaxis. Throat: No sore throat or mouth ulcers. Eyes: No diplopia or visual changes. RESPIRATORY: She has cough with occasional phlegm, and she also has shortness of breath. No hemoptysis. CARDIOVASCULAR: No chest pain, orthopnea, or paroxysmal nocturnal dyspnea (PND). No edema. No palpitations. GASTROINTESTINAL: No nausea or vomiting. No diarrhea or constipation. No change in bowel movements. No heartburn or swallowing difficulties. No abdominal pain. No jaundice. No hematemesis, melena, or rectal bleeding. GENITOURINARY: No hematuria or dysuria. MUSCULOSKELETAL: She has pain in the back, shoulders, arms, and legs. NEUROLOGIC: She has numbness in her hands. No headaches or convulsions. HEMATOLOGIC/LYMPHATIC: No bleeding or easy bruising. No weakness or fatigue. No enlarged lymph nodes. SKIN: No skin rash or lumps. PSYCHIATRIC: No anxiety or depression. PHYSICAL EXAMINATION GENERAL: Looks stable. Well developed, well nourished, and in no acute distress. VITAL SIGNS: Blood pressure 171/70, pulse 72 per minute, respirations 16 per minute, temperature 97, pulse ox 97% on room air. HEENT: Head: Atraumatic. No sinus tenderness to palpation. Eyes: No icterus or conjunctivitis. Mouth and Throat: No oral thrush or mucositis. NECK: Supple. No cervical or supraclavicular lymphadenopathy. LUNGS: Clear to auscultation and percussion bilaterally. HEART: Regular rate and rhythm. No gallops, murmurs, clicks, or rubs. ABDOMEN: Soft and lax. No tenderness. No hepatosplenomegaly. No masses. EXTREMITIES: No cyanosis, clubbing, or edema. LYMPHATICS: No peripheral lymphadenopathy. NEUROLOGIC: Conscious, alert, and oriented times three. No focal motor or sensory deficits. PSYCHIATRIC: Mood and affect appear normal. SKIN: No skin rash, bruise, or purpuric eruption. DIAGNOSTIC DATA CBC showed white count 6.6, hemoglobin 13.1, hematocrit 39, platelet 131,000. Iron studies show serum iron 180, TIBC 281, iron saturation 38.4%, and ferritin 64. ASSESSMENT 1. Iron deficiency anemia. Her ferritin initially was 9, and soluble transferrin receptor assay was high at 9.4. Patient treated with iron supplementation with Injectafer 750 mg weekly for two weeks with normalization of her iron studies. Her ferritin last visit was 32. Patient is maintained on one pill of ferrous sulfate 325 mg, and her current ferritin is actually 64 and hemoglobin 13.1 g/dL. I am planning to continue one pill a day. I will see her again in four months with CBC and iron studies with ferritin. 2. Hypogammaglobulinemia, on IVIG every three weeks. Will continue same treatment. 3. Hypertension, on treatment. 4. History of congestive heart failure. 5. History of peptic ulcer disease. PLAN 1. Continue ferrous sulfate 325 mg once daily. 2. Continue IVIG every three weeks as per schedule. 3. Patient to return in four months with CBC, iron studies with ferritin, and CMP. 4. Patient to contact us for any new concerns or complaints. [facility]
[~2019-02-22 08:43] MED LIST changes: +ALTEPLASE RECOMB 2 MG VIAL IVP PRN; +DEXTROSE 5%(*) 100 ML BAG 100 ML IVPB PRN; +IMMU GLOB(IGG) 10GR/100ML VIAL 40 GR in EMPTY EVACUATED CONT 0 ML IV ONE; +IMMU GLOB(IGG) 20GR/200ML VIAL 200 ML IV ONE; +IMMU GLOB(IGG) 20GR/200ML VIAL 200 ML IV SCH; +IMMUNE GLOBUL G/GLY/IGA 20 GM 200 ML IV ONE; +WATER FOR INJ,STERILE 20 ML IVP PRN
[2019-02-22 08:57] VITALS: BP 130/72
[2019-02-22] MEDS: LIDOCAINE/SOD BICARB 8.4% SYR ID PRN (09:16)
[2019-02-22] MEDS: NS(*) 0.9% 100 ML BAG 100 ML IVPB PRN (09:16)
[2019-02-22] MEDS: methylPREDNIS SUCC 125 MG/2ML IVP PRN (09:17)
[2019-02-22] MEDS: ACETAMINOPHEN 325 MG TAB PO PRN (09:18)
[2019-02-22] MEDS ORDERED: IMMUNE GLOBUL G/GLY/IGA 20 GM 200 ML IV ONE ×2 (09:25)
[2019-02-22 12:29] VITALS: BP 136/74
[2019-02-22] MEDS: HEPARIN FLSH (PORT) 500 UN/5ML IVP PRN (12:30)
== END 2019-02-28 ==
LOC: SPU 08:43
PROVIDERS: ATTEND Internal Medicine Hematology
DX: D64.9 Anemia, unspecified (principal); M86.68 Other chronic osteomyelitis, other site; D80.1 Nonfamilial hypogammaglobulinemia
CPT/HCPCS: 36591; 82728; 83540; 83550; 85025; 96365; 96366; 96367; 96375; A9270; G0463; J1459; J1561; J1642; J2930; J7050; Q0163; 99212